=== PATIENT | male | born 1940 | race Caucasian/White ===

== ENCOUNTER 2019-04-22 14:03 | Outpatient (CLI) | payer MEDICARE, OTHER, SELFPAY ==
[2019-04-22 14:26] LABS: Basophils Percent Auto 0.5 % (0.2-1.2); Eosinophils Absolute Auto 0.1 K/mm3 (0-0.3); Eosinophils Percent Auto 1.7 % (0-4.4); Hematocrit 43.2 % (42.0-52.0); Hemoglobin 14.3 g/dL (14.0-18.0); Immature Granulocyte Absolute 0.02 K/mm3 (0.00-0.031); Immature Granulocyte Percent A 0.3 % (0-0.5); Lymphocytes Absolute Auto 1.65 K/mm3 (0.9-3.2); Lymphocytes Percent Auto 26.2 % (18.3-44.2); Mean Corpuscular HGB Conc 33.1 g/dl (32-36); Mean Corpuscular Hemoglobin 30.4 pg (26-34); Mean Corpuscular Volume 91.7 fl (80-100); Mean Platelet Volume 10.6 fl (7.4-10.4); Monocytes Absolute Auto 0.6 K/mm3 (0.1-0.6); Monocytes Percent Auto 8.9 % (2.6-8.5); Neutrophils Absolute Auto 3.9 K/mm3 (1.3-6.7); Neutrophils Percent Auto 62.4 % (45.5-73.1); Platelet Count Result 193 k/mm3 (150-375); Red Blood Count 4.71 M/mm3 (4.6-6.20); Red Cell Distribution Width 13.6 % (11.5-14.5); White Blood Count 6.3 K/mm3 (4.5-10.0)
[2019-04-22 14:39] LABS: Alanine Aminotransferase 30 U/L (4-50); Albumin Level 4.3 g/dL (3.5-5.1); Alkaline Phosphatase 55 U/L (38-126); Aspartate Amino Transferase 32 U/L (17-59); Bilirubin,Total 0.8 mg/dL (0.2-1.3); Blood Urea Nitrogen 17 mg/dL (9-20); Calcium 9.1 mg/dL (8.4-10.2); Carbon Dioxide 23 mmol/L (22-30); Chloride 105 mmol/L (98-107); Cholesterol 99 mg/dL (0-200); Estimated Glomerular Filt Rate > 60; Glucose 104 mg/dL (75-110); HDL Direct 30 mg/dL; Potassium 4.5 mmol/L (3.4-5.0); Sodium 140 mmol/L (137-145); Triglycerides 107 mg/dL (<150)
[2019-04-22 14:49] LABS: LDL Cholesterol Direct 52 mg/dL
== END 2019-04-22 14:04 | disposition home or self-care (01) ==
DX: I25.10 Atherosclerotic heart disease of native coronary artery without angina pectoris (principal); E78.5 Hyperlipidemia, unspecified; Z85.038 Personal history of other malignant neoplasm of large intestine
CPT/HCPCS: 36415; 80053; 80061; 85025

== ENCOUNTER 2020-02-17 10:09 | Outpatient (CLI) | payer MEDICARE, OTHER, SELFPAY ==
[2020-02-17 10:50] LABS: Basophils Percent Auto 0.3 % (0.2-1.2); Eosinophils Absolute Auto 0.1 K/mm3 (0-0.3); Eosinophils Percent Auto 2.2 % (0-4.4); Hematocrit 40.4 % (42.0-52.0); Hemoglobin 13.5 g/dL (14.0-18.0); Immature Granulocyte Absolute 0.02 K/mm3 (0.00-0.031); Immature Granulocyte Percent A 0.3 % (0-0.5); Lymphocytes Absolute Auto 1.36 K/mm3 (0.9-3.2); Lymphocytes Percent Auto 23.2 % (18.3-44.2); Mean Corpuscular HGB Conc 33.4 g/dl (32-36); Mean Corpuscular Hemoglobin 31.5 pg (26-34); Mean Corpuscular Volume 94.4 fl (80-100); Monocytes Absolute Auto 0.5 K/mm3 (0.1-0.6); Neutrophils Absolute Auto 3.8 K/mm3 (1.3-6.7); Platelet Count Result 194 k/mm3 (150-375); Red Blood Count 4.28 M/mm3 (4.6-6.20); Red Cell Distribution Width 13.2 % (11.5-14.5); White Blood Count 5.9 K/mm3 (4.5-10.0)
[2020-02-17 11:04] LABS: Alanine Aminotransferase 23 U/L (4-50); Albumin Level 3.9 g/dL (3.5-5.1); Alkaline Phosphatase 51 U/L (38-126); Anion Gap 5 mmol/L (8-16); Aspartate Amino Transferase 26 U/L (17-59); Bilirubin,Total 0.9 mg/dL (0.2-1.3); Blood Urea Nitrogen 18 mg/dL (9-20); Calcium 9.1 mg/dL (8.4-10.2); Carbon Dioxide 29 mmol/L (22-30); Chloride 106 mmol/L (98-107); Cholesterol 129 mg/dL (0-200); Estimated Glomerular Filt Rate > 60; Glucose 111 mg/dL (75-110); HDL Direct 31 mg/dL; Magnesium 1.9 mg/dL (1.6-2.3); Potassium 4.2 mmol/L (3.4-5.0); Sodium 140 mmol/L (137-145); Triglycerides 211 mg/dL (<150)
[2020-02-17 11:15] LABS: LDL Cholesterol Direct 55 mg/dL
== END 2020-02-17 10:10 | disposition home or self-care (01) ==
LOC: ANHLAB 10:14
PROVIDERS: Visit Provider Internal Medicine Interventional Cardiology
DX: E78.5 Hyperlipidemia, unspecified (principal); I25.718 Atherosclerosis of autologous vein coronary artery bypass graft(s) with other forms of angina pectoris
CPT/HCPCS: 36415; 80053; 80061; 83735; 85025

== ENCOUNTER 2020-08-23 08:59 | Outpatient (CLI) | payer MEDICARE, OTHER, SELFPAY ==
[2020-08-23 09:35] LABS: Basophils Percent Auto 0.3 % (0.2-1.2); Eosinophils Absolute Auto 0.1 K/mm3 (0-0.3); Eosinophils Percent Auto 1.4 % (0-4.4); Hematocrit 42.2 % (42.0-52.0); Hemoglobin 13.8 g/dL (14.0-18.0); Immature Granulocyte Absolute 0.02 K/mm3 (0.00-0.031); Immature Granulocyte Percent A 0.3 % (0-0.5); Lymphocytes Percent Auto 24.3 % (18.3-44.2); Mean Corpuscular HGB Conc 32.7 g/dl (32-36); Mean Corpuscular Hemoglobin 31.7 pg (26-34); Mean Platelet Volume 10.3 fl (7.4-10.4); Monocytes Absolute Auto 0.6 K/mm3 (0.1-0.6); Monocytes Percent Auto 10.4 % (2.6-8.5); Neutrophils Absolute Auto 3.6 K/mm3 (1.3-6.7); Neutrophils Percent Auto 63.3 % (45.5-73.1); Platelet Count Result 188 k/mm3 (150-375); Red Blood Count 4.35 M/mm3 (4.6-6.20); Red Cell Distribution Width 13.2 % (11.5-14.5); White Blood Count 5.8 K/mm3 (4.5-10.0)
[2020-08-23 09:48] LABS: Alanine Aminotransferase 19 U/L (4-50); Albumin Level 4.1 g/dL (3.5-5.1); Alkaline Phosphatase 50 U/L (38-126); Anion Gap 8 mmol/L (8-16); Aspartate Amino Transferase 28 U/L (17-59); Bilirubin,Total 1.3 mg/dL (0.2-1.3); Blood Urea Nitrogen 17 mg/dL (9-20); Calcium 9.3 mg/dL (8.4-10.2); Carbon Dioxide 27 mmol/L (22-30); Chloride 106 mmol/L (98-107); Cholesterol 120 mg/dL (0-200); Estimated Glomerular Filt Rate 53; Glucose 106 mg/dL (75-110); HDL Direct 29 mg/dL; Potassium 4.3 mmol/L (3.4-5.0); Sodium 141 mmol/L (137-145); Triglycerides 203 mg/dL (<150)
[2020-08-23 09:59] LABS: LDL Cholesterol Direct 49 mg/dL
== END 2020-08-23 09:00 | disposition home or self-care (01) ==
PROVIDERS: PCP Family Medicine; Visit Provider Internal Medicine Interventional Cardiology
DX: I25.718 Atherosclerosis of autologous vein coronary artery bypass graft(s) with other forms of angina pectoris (principal); R06.00 Dyspnea, unspecified
CPT/HCPCS: 36415; 80053; 80061; 85025

== ENCOUNTER 2021-03-02 09:43 | Outpatient (CLI) | payer MEDICARE, OTHER, SELFPAY ==
[2021-03-02 10:30] LABS: Basophils Percent Auto 0.4 % (0.2-1.2); Eosinophils Absolute Auto 0.1 K/mm3 (0-0.3); Eosinophils Percent Auto 2.3 % (0-4.4); Hematocrit 41.5 % (42.0-52.0); Hemoglobin 13.6 g/dL (14.0-18.0); Immature Granulocyte Absolute 0.02 K/mm3 (0.00-0.031); Immature Granulocyte Percent A 0.4 % (0-0.5); Lymphocytes Absolute Auto 1.51 K/mm3 (0.9-3.2); Lymphocytes Percent Auto 26.8 % (18.3-44.2); Mean Corpuscular HGB Conc 32.8 g/dl (32-36); Mean Corpuscular Hemoglobin 31.4 pg (26-34); Mean Corpuscular Volume 95.8 fl (80-100); Mean Platelet Volume 10.3 fl (7.4-10.4); Monocytes Absolute Auto 0.6 K/mm3 (0.1-0.6); Monocytes Percent Auto 10.3 % (2.6-8.5); Neutrophils Absolute Auto 3.4 K/mm3 (1.3-6.7); Neutrophils Percent Auto 59.8 % (45.5-73.1); Platelet Count Result 186 k/mm3 (150-375); Red Blood Count 4.33 M/mm3 (4.6-6.20); Red Cell Distribution Width 13.3 % (11.5-14.5); White Blood Count 5.6 K/mm3 (4.5-10.0)
[2021-03-02 10:41] LABS: Alanine Aminotransferase 24 U/L (4-50); Albumin Level 4.2 g/dL (3.5-5.1); Alkaline Phosphatase 53 U/L (38-126); Anion Gap 8 mmol/L (8-16); Aspartate Amino Transferase 26 U/L (17-59); Bilirubin,Total 0.7 mg/dL (0.2-1.3); Blood Urea Nitrogen 14 mg/dL (9-20); Calcium 9.4 mg/dL (8.4-10.2); Carbon Dioxide 25 mmol/L (22-30); Chloride 106 mmol/L (98-107); Cholesterol 116 mg/dL (0-200); Estimated Glomerular Filt Rate 59; Glucose 114 mg/dL (65-110); HDL Direct 35 mg/dL; Potassium 4.1 mmol/L (3.4-5.0); Sodium 139 mmol/L (137-145); Triglycerides 166 mg/dL (<150)
[2021-03-02 10:52] LABS: LDL Cholesterol Direct 51 mg/dL
== END 2021-03-02 09:44 | disposition home or self-care (01) ==
LOC: ANHLAB 09:45
PROVIDERS: PCP Family Medicine; Visit Provider Internal Medicine Interventional Cardiology
DX: I25.718 Atherosclerosis of autologous vein coronary artery bypass graft(s) with other forms of angina pectoris (principal); R06.00 Dyspnea, unspecified
CPT/HCPCS: 36415; 80053; 80061; 85025

== ENCOUNTER 2021-09-06 08:26 | Outpatient (CLI) | payer MEDICARE, OTHER, SELFPAY ==
[2021-09-06 08:41] LABS: Basophils Percent Auto 0.4 % (0.2-1.2); Eosinophils Absolute Auto 0.1 K/mm3 (0-0.3); Eosinophils Percent Auto 1.6 % (0-4.4); Hematocrit 42.6 % (42.0-52.0); Hemoglobin 13.7 g/dL (14.0-18.0); Immature Granulocyte Absolute 0.03 K/mm3 (0.00-0.031); Immature Granulocyte Percent A 0.4 % (0-0.5); Lymphocytes Absolute Auto 1.65 K/mm3 (0.9-3.2); Lymphocytes Percent Auto 24.3 % (18.3-44.2); Mean Corpuscular HGB Conc 32.2 g/dl (32-36); Mean Corpuscular Hemoglobin 31.4 pg (26-34); Mean Corpuscular Volume 97.5 fl (80-100); Mean Platelet Volume 9.6 fl (7.4-10.4); Monocytes Absolute Auto 0.8 K/mm3 (0.1-0.6); Monocytes Percent Auto 11.3 % (2.6-8.5); Neutrophils Absolute Auto 4.2 K/mm3 (1.3-6.7); Platelet Count Result 190 k/mm3 (150-375); Red Blood Count 4.37 M/mm3 (4.6-6.20); Red Cell Distribution Width 13.4 % (11.5-14.5); White Blood Count 6.8 K/mm3 (4.5-10.0)
[2021-09-06 09:03] LABS: Alanine Aminotransferase 21 U/L (6-50); Albumin Level 4.4 g/dL (3.5-5.1); Alkaline Phosphatase 52 U/L (38-126); Anion Gap 2 mmol/L (8-16); Aspartate Amino Transferase 26 U/L (17-59); Bilirubin,Total 1.1 mg/dL (0.2-1.3); Blood Urea Nitrogen 19 mg/dL (9-20); Calcium 8.9 mg/dL (8.4-10.2); Carbon Dioxide 29 mmol/L (22-30); Chloride 107 mmol/L (98-107); Cholesterol 111 mg/dL (0-200); Estimated Glomerular Filt Rate 49; Glucose 110 mg/dL (65-110); HDL Direct 35 mg/dL; Potassium 4.3 mmol/L (3.4-5.0); Sodium 138 mmol/L (137-145); Triglycerides 151 mg/dL (<150)
[2021-09-06 09:14] LABS: LDL Cholesterol Direct 45 mg/dL
== END 2021-09-06 08:27 | disposition home or self-care (01) ==
PROVIDERS: PCP Family Medicine; Visit Provider Internal Medicine Interventional Cardiology
DX: E78.5 Hyperlipidemia, unspecified (principal); I25.718 Atherosclerosis of autologous vein coronary artery bypass graft(s) with other forms of angina pectoris
CPT/HCPCS: 36415; 80053; 80061; 85025

== ENCOUNTER 2022-06-13 12:44 | Outpatient (CLI) | payer MEDICARE, OTHER, SELFPAY ==
[2022-06-13 13:07] LABS: Basophils Percent Auto 0.3 % (0.2-1.2); Eosinophils Absolute Auto 0.1 K/mm3 (0-0.3); Eosinophils Percent Auto 1.2 % (0-4.4); Hematocrit 41.7 % (42.0-52.0); Hemoglobin 13.3 g/dL (14.0-18.0); Immature Granulocyte Absolute 0.03 K/mm3 (0.00-0.031); Immature Granulocyte Percent A 0.5 % (0-0.5); Lymphocytes Absolute Auto 1.63 K/mm3 (0.9-3.2); Lymphocytes Percent Auto 27.9 % (18.3-44.2); Mean Corpuscular HGB Conc 31.9 g/dl (32-36); Mean Corpuscular Hemoglobin 32.2 pg (26-34); Monocytes Absolute Auto 0.6 K/mm3 (0.1-0.6); Monocytes Percent Auto 9.7 % (2.6-8.5); Neutrophils Absolute Auto 3.5 K/mm3 (1.3-6.7); Neutrophils Percent Auto 60.4 % (45.5-73.1); Platelet Count Result 196 k/mm3 (150-375); Red Blood Count 4.13 M/mm3 (4.6-6.20); Red Cell Distribution Width 13.5 % (11.5-14.5); White Blood Count 5.9 K/mm3 (4.5-10.0)
[2022-06-13 13:19] LABS: Alanine Aminotransferase 23 U/L (6-50); Albumin Level 4.3 g/dL (3.5-5.1); Alkaline Phosphatase 47 U/L (38-126); Anion Gap 5 mmol/L (8-16); Aspartate Amino Transferase 25 U/L (17-59); Bilirubin,Total 0.8 mg/dL (0.2-1.3); Blood Urea Nitrogen 25 mg/dL (9-20); Carbon Dioxide 28 mmol/L (22-30); Chloride 106 mmol/L (98-107); Cholesterol 125 mg/dL (0-200); Estimated Glomerular Filt Rate > 60; Glucose 107 mg/dL (65-110); HDL Direct 39 mg/dL; Potassium 4.3 mmol/L (3.4-5.0); Sodium 139 mmol/L (137-145); Triglycerides 160 mg/dL (<150)
[2022-06-13 13:30] LABS: LDL Cholesterol Direct 54 mg/dL
== END 2022-06-13 12:45 | disposition home or self-care (01) ==
PROVIDERS: PCP Family Medicine; Visit Provider Internal Medicine Interventional Cardiology
DX: E78.2 Mixed hyperlipidemia (principal); I10 Essential (primary) hypertension; Z79.01 Long term (current) use of anticoagulants
CPT/HCPCS: 36415; 80053; 80061; 85025

== ENCOUNTER 2022-09-22 15:04 | Inpatient (IN) | payer MEDICARE, OTHER, SELFPAY ==
[2022-09-22] VITALS (15 sets, daily range): BP systolic 122–162; BP diastolic 66–83; PULSE 59–85; RESP 12–21; TEMP 36.3–37.6; O2SAT 94–98; BMI 33.1
--- NOTE | ~2022-09-22 | CT_ITS ---
CORRECTED REPORT exam description [place] [facility] [place] This report was recreated on 09/26/22. Original report was C EXAMINATION: CT abdomen pelvis w con DATE: 09/22/2022 16:56 INDICATION: RLQ PAIN TECHNIQUE: Computed tomography (CT) of the abdomen and pelvis was performed without intravenous contrast. Automated exposure control and iterative reconstruction technique were employed. The dose-length product was 1537.77 mGy- cm. COMPARISON: 11/29/2014. FINDINGS: Lower thorax: Unremarkable Liver: Granulomatous calcifications. Biliary/Gallbladder: Gallbladder is absent. No bile duct dilation. Pancreas: Mild atrophy. Spleen: Granulomatous calcifications. Adrenals:No mass. Kidneys: Simple bilateral lower pole cysts. No mass, stone, or hydronephrosis. GI tract: Uncomplicated rectosigmoid anastomosis. No small or large bowel dilation. Mild chronic dilation of the appendix to 9 mm, mild mucosal hyperemia, no surrounding inflammatory change Diverticulosis without diverticulitis. Mesentery/Peritoneum: No ascites, mass, or free air. Retroperitoneum: No mass. Atherosclerotic abdominal aortic and/or arterial calcifications. Pelvis: Prostatomegaly. Moderate bladder wall thickening with mild inflammatory change in a partially distended urinary bladder. Soft Tissues: Small fat-containing uncomplicated umbilical and bilateral inguinal hernias. Bones: No acute osseous finding. 6 nonrib-bearing lumbar-type vertebral bodies. Chronic moderate compression deformity at L1. Chronic mild endplate deformity at L4. Multilevel degenerative disc disease and facet arthropathy. DISH changes. IMPRESSION: Stable dilation of the appendix, with mild wall hyperemia and no significant surrounding inflammatory change, chronic change is favored, early appendicitis is not excluded. Cystitis versus chronic bladder wall thickening from outlet compromise. Reviewed, dictated and finalized at location [facility]. [facility] IMPRESSION: Stable dilation of the appendix, with mild wall hyperemia and no significant urbano rrounding inflammatory change, chronic change is favored, early appendicitis is not excluded. Cystitis versus chronic bladder wall thickening from outlet compromise.
--- NOTE | ~2022-09-22 | CT_ITS ---
EXAMINATION: CTA chest DATE: 09/22/2022 16:56 INDICATION: chest pain, eval dissection TECHNIQUE: Computed tomography (CT) of the chest was performed with 100 mL Omnipaque-350 intravenous contrast in the arterial phase. Automated exposure control and iterative reconstruction technique wer e employed. The dose-length product was 989.58 mGy-cm. COMPARISON: CT abdomen pelvis 11/29/2014. FINDINGS: CHEST: Thoracic aorta: No significant dilation. Mild arch calcification. Lung parenchyma and airways: Mild senescent change. Dependent atelectasis/scar. Calcified granulomas. Scattered sub-6 mm pulmonary nodules. Thoracic inlet, axillae and chest wall: No thyroid or soft tissue mass. No axillary lymphadenopathy. Intact sternotomy wires, likely from prior CABG. Mediastinum: No mass or lymphadenopathy. The pulmonary arteries are well seen and no embolus is detec [place]. Heart and pericardium: Normal heart size. No pericardial effusion. Aortic valve calcification. Coronary artery calcifications: Moderate. Pleura: No effusion or mass. Upper abdomen: No significant finding. Thoracic bones: No acute osseous finding in the chest. Degenerative changes in the shoulders and spin e. DISH changes. Chronic moderate T12 compression fracture. IMPRESSION: No acute thoracic process detected. Scattered sub-6 mm pulmonary nodules, likely benign and requiring no additional follow-up unless the patient is at high risk, in which case consider an optional low-dose noncontrast CT of the chest in o ne year. Reviewed, dictated and finalized at [facility]. IMPRESSION: No acute thoracic process detected. Scattered sub-6 mm pulmonary nodules, likely benign and requiring no additional follow-up unless the patient is at high risk, in which case consider an option al low-dose noncontrast CT of the chest in one year.
--- NOTE | 2022-09-22 15:20 | ECG_ITS ---
Measurements Intervals [place] Rate: 79 P: 34 MN: 157 QRS: -1 QRSD: 110 T: 43 QT: 373 QTc: 428 Interpretive Statements SINUS RHYTHM NORMAL ECG NO PREVIOUS ECG AVAILABLE FOR COMPARISON Electronically Signed On 09-22-2022 16:44:11 CDT by Burt Mi D.O.
--- NOTE | 2022-09-22 15:23 | ED.FEVER ---
HPI - Fever General Chief Complaint: Fever Stated Complaint: fever/body aches/ Time Seen by Provider: 09/22/22 15:09 History of Present Illness HPI Narrative: Patient is an 82-year-old male with a history of CAD status post CABG, hyperlipidemia, hypertension presenting with fevers and chest pain. Patient states that for the last several days he has been feeling increasingly nauseated and has had intermittent episodes of chest pain that goes into his back. States that currently he is pain-free. States that he took some nitro yesterday which did not really do much. States that he ate at a [employer] yesterday and several hours later started to feel very nauseated. States that this is continued. States he had another episode of chest pain this morning that did not respond to nitro. States he has been feeling increasingly short of breath. Patient was feeling chilly so he checked his temperature and it was 103 Fahrenheit. He also states that he has had some right lower abdominal pain. No headache, vision changes, speech changes, cough, dysuria, leg swelling. Reports chronic diarrhea. Related Data Home Medications Medication Instructions Recorded Confirmed aspirin 81 mg tablet 81 mg PO DAILY 09/22/22 09/22/22 atenolol 50 mg tablet 50 mg PO DAILY 09/22/22 09/22/22 atorvastatin 80 mg tablet 80 mg HS 09/22/22 09/22/22 cholecalciferol (vitamin D3) 125 125 mcg PO DAILY 09/22/22 09/22/22 mcg (5,000 unit) tablet (Vitamin D3) chondroitin sulfate A sodium 400 1,200 mg PO DAILY 09/22/22 09/22/22 mg capsule clopidogrel 75 mg tablet 75 mg DAILY 09/22/22 09/22/22 glucosamine sulfate 750 mg tablet 1,500 mg PO DAILY 09/22/22 09/22/22 isosorbide mononitrate 60 mg 60 mg PO DAILY 09/22/22 09/22/22 tablet,extended release 24 hr lisinopril 10 mg tablet 10 mg PO DAILY 09/22/22 09/22/22 multivitamin (Daily Multi-Vitamin 1 tablet PO DAILY 09/22/22 09/22/22 tablet) omega 1-zub-aic-fish oil 1,000 mg 1 cap PO DAILY 09/22/22 09/22/22 (120 mg-180 mg) capsule (Fish Oil) prednisolone acetate 1 % eye 1 drp EACH EYE HS 09/22/22 09/22/22 drops,suspension ranolazine 1,000 mg 1,000 mg PO QAM AND QPM 09/22/22 09/22/22 tablet,extended release,12 hr Allergies Allergy/AdvReac Type Severity Reaction Status Date / Time No Known Allergies Allergy Unverified 11/06/16 18:32 Review of Systems Review of Systems: All systems reviewed & are unremarkable except as noted in HPI and below [facility] Past Medical History Medical History CAD (coronary artery disease) Catheterization in 2017 revealed severe three-vessel coronary disease, patent SONG to the Left anterior descending, patent sequential radial artery graft to OM2 and OM3, occluded SVG to the ramus, occluded SVG to the RCA. The RCA had an 80% proximal and a long 70% mid stenosis with an occluded posterolateral and 80% ostial PDA branch which was small. The diagonal was also diseased. Due to the diffuse nature of his CAD and small vessels, medical therapy was continued. Compression fracture Hyperlipidemia Hypertension Obstructive sleep apnea Osteoarthritis Surgical History Surgical History H/O colectomy History of colon cancer 6 cm tumor. Hx of cholecystectomy S/P CABG x 5 CABG x5 in 2001 (SONG to the Left anterior descending, SVG to the ramus, SVG to the posterior descending, radial artery graft to the om 1 sequentially to OM2. Catheterization 2017 showed the vein grafts were occluded. Family History Family History Sibling Family history of chronic obstructive pulmonary disease Family history of diabetes mellitus in first degree relative Mother Family history of heart disease in male family member before age 55 Father Acute myocardial infarction Other Family history of gallbladder disease Social History Socia
[2022-09-22] MEDS: SODIUM CHLORIDE 0.9% IV 1,000 ML 999 ML IV CONT (15:35)
[2022-09-22 16:02] LABS: Basophils Percent Auto 0.2 % (0.2-1.2); Hematocrit 39.1 % (42.0-52.0); Hemoglobin 12.9 g/dL (14.0-18.0); Immature Granulocyte Absolute 0.03 K/mm3 (0.00-0.031); Immature Granulocyte Percent A 0.5 % (0-0.5); Lymphocytes Absolute Auto 0.32 K/mm3 (0.9-3.2); Lymphocytes Percent Auto 5.3 % (18.3-44.2); Mean Corpuscular Hemoglobin 31.8 pg (26-34); Mean Corpuscular Volume 96.3 fl (80-100); Mean Platelet Volume 10.8 fl (7.4-10.4); Monocytes Absolute Auto 0.5 K/mm3 (0.1-0.6); Monocytes Percent Auto 8.1 % (2.6-8.5); Neutrophils Absolute Auto 5.2 K/mm3 (1.3-6.7); Neutrophils Percent Auto 85.9 % (45.5-73.1); Platelet Count Result 147 k/mm3 (150-375); Red Blood Count 4.06 M/mm3 (4.6-6.20); Red Cell Distribution Width 13.6 % (11.5-14.5); White Blood Count 6.1 K/mm3 (4.5-10.0)
[2022-09-22 16:12] LABS: Lactic Acid Reflex 1.8 mmol/L (0.7-2.0); Lipase 38 U/L (23-300); Magnesium 1.8 mg/dL (1.6-2.3)
[2022-09-22 16:14] LABS: INR 1.1; Prothrombin Time 14.7 Seconds (11.1-14.7)
[2022-09-22 16:15] LABS: Partial Thromboplastin Time 36.7 SECONDS (22.3-36.8)
[2022-09-22 16:16] LABS: Alanine Aminotransferase 26 U/L (6-50); Albumin Level 4.1 g/dL (3.5-5.1); Alkaline Phosphatase 52 U/L (38-126); Anion Gap 11 mmol/L (8-16); Aspartate Amino Transferase 32 U/L (17-59); Bilirubin,Total 1.4 mg/dL (0.2-1.3); Blood Urea Nitrogen 21 mg/dL (9-20); CRP 6.6 mg/dL (<1.0); Carbon Dioxide 22 mmol/L (22-30); Chloride 102 mmol/L (98-107); Estimated Glomerular Filt Rate > 60; Glucose 120 mg/dL (65-110); Potassium 4.3 mmol/L (3.4-5.0); Sodium 135 mmol/L (137-145)
[2022-09-22 16:22] LABS: NT Pro B Type Natriuretic Pept 962 pg/mL (19.9-100)
[2022-09-22 16:27] LABS: Troponin I 0.233 ng/mL (0.000-0.034)
[2022-09-22 16:31] LABS: Appearance Urine Clear (Clear); Bacteria Urine None Seen /hpf; Bilirubin Urine Negative (Negative); Blood Urine Trace (Negative); Color Urine Yellow (Yellow); Glucose Urine UA Negative (Negative); Hyaline Casts Urine Present /lpf; Ketones Urine Negative (Negative); Leukocyte Esterase Ur 2+ LEU/UL (Negative); Nitrate Urine Positive (Negative); Non Pathogenic Casts 0-2; Protein Urine Trace mg/dL (Negative); RBC Urine 0-2 /hpf (0-2); Specific Grav Ur 1.021 (1.001-1.035); Squamous Epithelial Cell Urine None seen /hpf (Few); WBC Urine 51-100 /hpf; pH Urine 5.5 (5.0-9.0)
[2022-09-22 16:32] LABS: Add Urine Microscopic? YES
[2022-09-22] MEDS: ASPIRIN 81 MG CHEWABLE TABLET 324 MG PO (16:34)
[2022-09-22 16:43] LABS: Influenza A QL RT-PCR Negative (Negative); Influenza B QL RT-PCR Negative (Negative); RSV RNA, RT-PCR Negative (Negative); SARS-CoV-2 RNA PCR Negative (Negative)
--- NOTE | 2022-09-22 18:51 | ADMGEN ---
This patient, Kannan Curran, was admitted to IMU Room 202-01. Patient/family oriented to hospital policies and general routines including ID bracelet, bed and alarms, visiting hours, pain management, procedures, bathroom and other care routines, personal items, smoking policy, room service/diet, and visiting hours. Information on how to activate the Rapid Response Team has been discussed. Patient/Family are encouraged to report perceived risks to care and to ask questions if they do not understand what they are told or what they should do.
--- NOTE | 2022-09-22 20:12 | PM.IMHP ---
H&P: HPI History of Present Illness Date/Time: 09/22/22 20:12 Chief Complaint: Fever with body aches Narrative: This is an 82-year-old male patient who has had history of coronary artery disease with a 5 vessel CABG. The patient's dominatrix is at [facility] Dr. Fonseca. The patient was complaining of chest pain and fevers today. The patient stated that he ate [place] food approximately 2 days ago and has been feeling nauseated and had some intermittent episodes of chest pain that comes and goes. He is currently pain-free. The patient has had some nausea and some chills. Patient stated that his T-max was 103?. He also is complaining of some right lower quadrant pain. No vomiting and the patient has chronic diarrhea. His white count is normal. H&H is 12.9 and 39.1. Platelets 143. Troponin 0.233, 0.180, and 0.136. C reactive protein is 6.6. BNP is 962. Urine is positive for UTI. Influenza A/B COVID and RSV are all negative. Abdominal pelvis CT was read as a following dilation of the appendix, with mild wall hyperemia and no significant surrounding inflammatory change, chronic change is favored, early appendicitis is not excluded. Cystitis versus chronic bladder wall thickening from outlet compromise. Chest CTA was read as no acute thoracic process detected. Scattered sub-6 mm pulmonary nodules, likely benign and requiring no additional follow-up unless the patient is at high risk, in which case consider an optional low-dose noncontrast CT of the chest in one year. Patient was given aspirin Rocephin and IV fluids in the emergency room. Review of Systems Review of Systems: All systems reviewed & are unremarkable except as noted in HPI and below Constitutional: Constitutional: Reports as per HPI and Reports no additional constitutional complaints Eyes: Eyes: Reports as per HPI and Reports no additional eye complaints ENT: Reports system reviewed and no additional complaints, except as documented and Reports Normal hearing present Cardiovascular: Cardiovascular: Reports no additional cardiovascular complaints Respiratory: Respiratory: Reports no additional respiratory complaints and Reports no additional respiratory complaints Gastrointestinal: Gastrointestinal: Reports as per HPI and Reports no additional gastrointestinal complaints Musculoskeletal: Musculoskeletal: Reports no additional musculoskeletal complaints Integumentary/Breasts: Skin/Breast: Reports system reviewed and no additional complaints, except as docu and Reports as per HPI Neurologic: Reports system reviewed and no additional complaints, except as documented, Reports as per HPI and Reports Normal hearing present Psychiatric: Psychiatric: Reports no additional psychiatric complaints and Reports as per HPI Endocrine: Endocrine: Reports no additional endocrine complaints Hematologic/Lymphatic: Hematologic/Lymphatic: Reports no additional hematologic/lymphatic complaints Allergic/Immunologic: Allergic/Immunologic: Reports no additional allergic/immunologic complaints PMFSH Past Medical History Medical History (Updated 09/23/22 @ 00:16 by Coretta Baird NP) CAD (coronary artery disease) Compression fracture Hyperlipidemia Hypertension Obstructive sleep apnea Osteoarthritis Surgical History Surgical History (Updated 09/23/22 @ 00:12 by Coretta Baird NP) H/O colectomy History of colon cancer 6 cm tumor. Hx of cholecystectomy S/P CABG x 5 Family History Family History Sibling Family history of chronic obstructive pulmonary disease Family history of diabetes mellitus in first degree relative Mother Family history of heart disease in male family member before age 55 Father Acute myocardial infarction Other Family history of gallbladder disease Social History Social History (Updated 09/23/22 @ 00:13 by Coretta Baird NP) Social History: The patient
[2022-09-22 22:28] LABS: Troponin I 0.136 ng/mL (0.000-0.034)
[2022-09-23] VITALS (17 sets, daily range): BP systolic 109–136; BP diastolic 51–68; PULSE 54–68; RESP 16–28; TEMP 36.4–36.9; O2SAT 94–99
[2022-09-23 05:08] LABS: Basophils Percent Auto 0.3 % (0.2-1.2); Eosinophils Percent Auto 0.3 % (0-4.4); Hematocrit 36.3 % (42.0-52.0); Hemoglobin 11.9 g/dL (14.0-18.0); Immature Granulocyte Absolute 0.01 K/mm3 (0.00-0.031); Immature Granulocyte Percent A 0.3 % (0-0.5); Lymphocytes Absolute Auto 0.62 K/mm3 (0.9-3.2); Lymphocytes Percent Auto 15.7 % (18.3-44.2); Mean Corpuscular HGB Conc 32.8 g/dl (32-36); Mean Corpuscular Hemoglobin 31.8 pg (26-34); Mean Corpuscular Volume 97.1 fl (80-100); Mean Platelet Volume 10.5 fl (7.4-10.4); Monocytes Absolute Auto 0.5 K/mm3 (0.1-0.6); Monocytes Percent Auto 12.4 % (2.6-8.5); Neutrophils Absolute Auto 2.8 K/mm3 (1.3-6.7); Platelet Count Result 128 k/mm3 (150-375); Red Blood Count 3.74 M/mm3 (4.6-6.20); Red Cell Distribution Width 13.5 % (11.5-14.5)
[2022-09-23 05:22] LABS: Lactic Acid Reflex 0.9 mmol/L (0.7-2.0)
[2022-09-23 05:25] LABS: Alanine Aminotransferase 25 U/L (6-50); Albumin Level 3.5 g/dL (3.5-5.1); Alkaline Phosphatase 45 U/L (38-126); Anion Gap 7 mmol/L (8-16); Aspartate Amino Transferase 33 U/L (17-59); Blood Urea Nitrogen 22 mg/dL (9-20); Calcium 8.2 mg/dL (8.4-10.2); Carbon Dioxide 23 mmol/L (22-30); Chloride 105 mmol/L (98-107); Estimated CRCL calculation 71 ml/min; Estimated Glomerular Filt Rate > 60; Glucose 104 mg/dL (65-110); Magnesium 1.9 mg/dL (1.6-2.3); Potassium 3.8 mmol/L (3.4-5.0); Sodium 135 mmol/L (137-145)
[2022-09-23 06:26] LABS: Thyroid Stimulating Hormone Reflex 0.423 uIU/mL (0.465-4.68)
--- NOTE | 2022-09-23 09:17 | PM.CNCAR ---
Assessment and Plan Assessment and plan (1) Elevated troponin: Code(s): R77.8 - Other specified abnormalities of plasma proteins Status: Acute Assessment and Plan: Patient presents with elevated troponins, and some chest discomfort which was somewhat atypical bt likely anginal. EKG does not show any ischemic changes. I suspected troponins are related to non ischemic myocardial damage due to the patient's high fever and rigors, and associated UTI, rather than an ACS syndrome. --continue secondary prevention with aspirin, atenolol, atorvastatin, clopidogrel etc. --TNG prn CP --continue conservative management of chest pain. (2) Chest discomfort: Code(s): R07.89 - Other chest pain Status: Acute Assessment and Plan: Some chest discomfort radiating to the axilla, not nitrate responsive, but known significant CAD and elevated troponins so this was likely angina. Has resolved. --continue conservative management (3) UTI (urinary tract infection): Code(s): N39.0 - Urinary tract infection, site not specified Status: Acute Assessment and Plan: High fever at home, probably UTI, possibly some degree of gastroenteritis as well. Being evaluated by Dr. Addison hutchison for his abnormal CT scan but it sounds like acute appendicitis is unlikely. --treatment of UTI per hospitalist. (4) CAD (coronary artery disease): Code(s): I25.10 - Atherosclerotic heart disease of [place] coronary artery without angina pectoris Status: Acute Assessment and Plan: Known CAD, remote CABG, known occlusion of vein grafts and diffuse CAD, clinically stable recently. --continue secondary prevention. Plan Thank you for allowing us to participate in the care of this nice gentleman. Will follow along and assist in any way we can. History of Present Illness History of Present Illness Consult date/time: 09/23/22 09:17 Reason For Visit: elevated troponin Narrative: Kanann Curran is an 82-year-old male whom I was asked to see at the request of AGUSTO Baird for my advice and opinion regarding his history of CAD and elevated troponin, in consultation. Mr. Villalobos has a history of CAD and CABG, followed by Dr. Eulalio Perez at [facility]. He has a history of CABG x5 in 2001 (SONG to the Left anterior descending, SVG to the ramus, SVG to the posterior descending, radial artery graft to the om 1 sequentially to OM2. Catheterization in 2017 revealed severe three-vessel coronary disease, patent SONG to the Left anterior descending, patent sequential radial artery graft to OM2 and OM3, occluded SVG to the ramus, occluded SVG to the RCA. The RCA had an 80% proximal and a long 70% mid stenosis with an occluded posterolateral and 80% ostial PDA branch which was small. The diagonal was also diseased. Due to the diffuse nature of his CAD and small vessels, medical therapy was continued. he was last seen in June 2022, with no angina while taking Ranexa and Imdur. The patient has not felt well since he ate [place] food on and Saturday with abdominal discomfort, ?grumbling, and anorexia. He also had a little mild chest discomfort across the upper chest radiating to his left axilla which lasted 1-2 hours, intermittently, on Saturday, and which did not respond to nitroglycerin x4. Per EMR he was having some shortness of breath although he denied any breathing problems with me. Per EMR he had some right lower quadrant pain, although on my questioning he had diffuse abdominal discomfort. He had a fever of 103.5? at home with sweats and chills, rigors, blistering knee hot, then feeling hypothermic. He came to the emergency room yesterday evening. Troponins were 0.23, 0.18, and 0.14. ProBNP is 960. CT of the abdomen and pelvis showed dilation of the appendix with mild wall hyperemia but no significant surrounding inflammatory change, possibly chronic although early appendicitis cannot be
[2022-09-23] MEDS: metroNIDAZOLE 500 MG/ISO 100ML 500 MG/100 ML BAG 100 MG IVPB ×3 (09:23→22:16)
[2022-09-23] MEDS: ASPIRIN 81 MG ENTERIC TABLET PO (09:27)
[2022-09-23] MEDS: atenoloL 50 MG TABLET PO (09:27)
[2022-09-23] MEDS: CHOLECALCIFEROL 1,000 UNITS TABLET 5000 UNITS PO (09:28)
[2022-09-23] MEDS: CLOPIDOGREL BISULFATE 75 MG TABLET BY MOUTH (09:28)
[2022-09-23] MEDS: ENOXAPARIN 40 MG/0.4 ML SYRINGE SUB-Q (09:29)
[2022-09-23] MEDS: RANOLAZINE 500 MG TAB.ER.12H 1000 MG PO ×2 (09:29→20:34)
[2022-09-23] MEDS: ISOSORBIDE MONONITRATE 60 MG TAB.ER.24H PO (09:29)
[2022-09-23] MEDS: MULTIVITAMINS THERAPEUTIC TAB (*BKC) 1 TABLET PO (09:29)
[2022-09-23] MEDS: lisinopriL 10 MG TABLET PO (09:29)
[2022-09-23] MEDS: OMEGA 3 POLYUNSAT FATTY ACIDS 1 GM CAP PO (09:29)
--- NOTE | 2022-09-23 10:28 | PM.CNGS ---
Assessment and Plan Assessment and plan (1) CAD (coronary artery disease): Code(s): I25.10 - Atherosclerotic heart disease of [place] coronary artery without angina pectoris Status: Acute Assessment and Plan: cardiology consulted and following (2) UTI (urinary tract infection): Code(s): N39.0 - Urinary tract infection, site not specified Status: Acute Assessment and Plan: cont abx, supportive care (3) Chronic appendicitis: Code(s): K36 - Other appendicitis Status: Acute Assessment and Plan: very mild on CT, exam benign, will follow c serial exams, ok to have diet from surgical standpoint History of Present Illness Consult details Consult date: 09/23/22 Reason for consult: abdominal pain Requesting physician: Radha Amato MD Narrative: The patient is an 82-year-old male with multiple medical issues including CAD presenting with chest pain, mild lower abdominal pain. Patient was noted to have elevated troponins and has been admitted for further workup. The patient reports some mild suprapubic abdominal pain, and right lower quadrant pain with palpation. The patient reports that he has had this right lower quadrant abdominal pain with palpation for many years. The patient reports no pain other then when this area is palpated. Workup, including imaging, is significant for what looks to be very mild chronic appendicitis. Review of Systems Constitutional: Constitutional: Reports as per HPI, Denies anorexia, Denies chills, Reports fatigue, Reports fever(s), Denies increased appetite, Reports lethargy, Reports malaise, Denies poor appetite, Reports weakness, Denies weight gain and Denies weight loss Eyes: Eyes: Reports no additional eye complaints ENT: Reports system reviewed and no additional complaints, except as documented Cardiovascular: Cardiovascular: Reports as per HPI, Reports chest pain, Reports chest pain with activity, Reports lightheadedness and Reports dyspnea on exertion Respiratory: Respiratory: Reports as per HPI Gastrointestinal: Gastrointestinal: Reports as per HPI and Reports abdominal pain Genitourinary: Genitourinary: Reports no additional male genitourinary complaints Musculoskeletal: Musculoskeletal: Reports no additional musculoskeletal complaints Integumentary/Breasts: Skin/Breast: Reports system reviewed and no additional complaints, except as docu Neurologic: Reports system reviewed and no additional complaints, except as documented Psychiatric: Psychiatric: Reports no additional psychiatric complaints Endocrine: Endocrine: Reports no additional endocrine complaints Hematologic/Lymphatic: Hematologic/Lymphatic: Reports no additional hematologic/lymphatic complaints Allergic/Immunologic: Allergic/Immunologic: Reports no additional allergic/immunologic complaints PMFSH Past Medical History Medical History CAD (coronary artery disease) Catheterization in 2017 revealed severe three-vessel coronary disease, patent SONG to the Left anterior descending, patent sequential radial artery graft to OM2 and OM3, occluded SVG to the ramus, occluded SVG to the RCA. The RCA had an 80% proximal and a long 70% mid stenosis with an occluded posterolateral and 80% ostial PDA branch which was small. The diagonal was also diseased. Due to the diffuse nature of his CAD and small vessels, medical therapy was continued. Compression fracture Hyperlipidemia Hypertension Obstructive sleep apnea Osteoarthritis Surgical History Surgical History H/O colectomy History of colon cancer 6 cm tumor. Hx of cholecystectomy S/P CABG x 5 CABG x5 in 2001 (SONG to the Left anterior descending, SVG to the ramus, SVG to the posterior descending, radial artery graft to the om 1 sequentially to OM2. Catheterization 2016 showed the vein grafts were occluded. Family Hi
[2022-09-23] MEDS: cefTRIAXone 2 GM/NS 100 ML 2 GM/100 ML BAG IVPB (13:11)
[2022-09-23 14:17] LABS: Free T4 Free Thyroxine Reflex 0.95 ng/dL (0.78-2.19)
--- NOTE | 2022-09-23 14:53 | PM.IMPN ---
Progress Note: A&P Assessment and Plan (1) Chest discomfort: Code(s): R07.89 - Other chest pain Status: Acute Assessment and Plan: Patient presents with chest pain and fevers. Troponin elevated at 0.233 but trending down now. EKG showing NSR and normal appearing EKG. He has a hx of CAD s/p CABG x5 in 2001 and is followed by Dr[address] Perez at [facility]Cardiology notes show he had a catheterization in 2017 showing severe three-vessel coronary disease, patent SONG to the LAD, radial artery graft to OM2 and OM3, occluded SVG to the ramus, occluded SVG to the RCA.? The RCA had an 80% proximal and a long 70% mid stenosis with an occluded posterolateral and 80% ostial PDA branch which was small.? The diagonal was also diseased.? Due to the diffuse nature of his CAD and small vessels, medical therapy was continued. Cardiology has been consulted. The patient has no further complaints of chest pain. Continue with Plavix, aspirin, atenolol, Imdur, atorvastatin and Ranexa. Appreciate cardiology input. (2) Elevated troponin: Code(s): R77.8 - Other specified abnormalities of plasma proteins Status: Acute Assessment and Plan: As above (3) Chronic appendicitis: Code(s): K36 - Other appendicitis Status: Acute Assessment and Plan: Patient with fever present on admission. He has known abnormalities of his appendix from 2013. No eelvated WBC (actually low this morning). No documented fevers here. UA noted but could either be UTI and/or related to jonnathan-appendiceal inflammation. BCx and UCx pending. He was started on Rocephin. Will add Flagyl. GenSurg consulted and appreciated their input. (4) UTI (urinary tract infection): Code(s): N39.0 - Urinary tract infection, site not specified Status: Acute Assessment and Plan: As above. UA noted. Continue with Rocephin and follow up on urine and blood cultures. (5) Fever: Code(s): R50.9 - Fever, unspecified Status: Acute Assessment and Plan: Patient had fever to 103 at home. Could be related to UTI and/or acute/chronic apendicitis. Cultures obtained. COVID/RSV/influenza negative. Chest CT negaitve for PNA. Normal WBC and no fevers here. Continue the same (6) CAD (coronary artery disease): Code(s): I25.10 - Atherosclerotic heart disease of [place] coronary artery without angina pectoris Status: Acute Assessment and Plan: He has a history of 5 vessel CABG. Continue current medical regiment (7) Hyperlipidemia: Code(s): E78.5 - Hyperlipidemia, unspecified Status: Acute Assessment and Plan: LFTs normal. Continue with atorvastatin. (8) Hypertension: Code(s): I10 - Essential (primary) hypertension Status: Acute Assessment and Plan: Patient's blood pressure was reviewed on 09/23/22 Blood pressure remains well controlled. Will continue current medications. (9) Obstructive sleep apnea: Code(s): G47.33 - Obstructive sleep apnea (adult) (pediatric) Status: Acute Assessment and Plan: Auto BiPAP has been ordered. Patient tolerating BiPAP here. Subjective Date/time seen: 09/23/22 14:53 Interval history: 82yo male with CAD, HTN and TUSHAR here for fever and CP. No further chest pain. No dysuria or hematuria. No lower feels feverish. No urinary frequency or urgency. Not vaccinated against COVID since original series. Chronic back pain but increased in severity. Exam Narrative: AF 98.3 120/68 55 20 99% ra Gen - NARD Chest - Bibasilar inspiratory crackles. nml RR CV - RRR S1/S2. Tele showing no significant dysrhythmias. Abd - Soft, ND, Positive BS. Very minimal tenderness to deep palpation to the RLQ Ext - trace pedal edema Psych - Nml mood and affect Skin - Warm and dry Objective Data Vital Signs Vital Signs: Vital Signs - 24 hr 09/22/22 15:11 09/22/22 15:59 09/22/22 16:04
[2022-09-23 16:05] LABS: Total Triiodothyronine (T3) 0.77 NG/ML (0.97-1.69)
[2022-09-23] MEDS: ATORVASTATIN 40 MG TABLET 80 MG BY MOUTH (20:34)
[2022-09-23] MEDS: prednisoLONE ACETATE 1% OPHTH 5 ML 1 DROP EACH EYE (20:34)
[2022-09-24] VITALS (11 sets, daily range): BP systolic 121–138; BP diastolic 65–71; PULSE 50–65; RESP 15–22; TEMP 36–36.4; O2SAT 97–100
--- NOTE | 2022-09-24 | ECHO_ITS ---
Patient Info Name: Kannan Curran Age: 82 years : 1940 Gender: Male Ht: 74 in Wt: 257 lbs BSA: 2.50 m2 HR: 51 bpm BP: 134 / 65 mmHg Heart Rhythm: Sinus Rhythm Technical Quality: Fair Exam Date: 09/24/2022 11:09 AM Exam Location: [facility] Patient Status: Inpatient Admit Date: 09/23/2022 Staff Ordering Physician: Coretta Baird NP Decorator Hand: Avis Cotton RDCS Attending Provider: Radha Amato MD Referring Physician: Brie GROVES; Exam Type: CA echo dop color flow w con Study Info Indications - CAD Complete two-dimensional, color flow and Doppler transthoracic echocardiogram is performed with contrast to opacify the left ventricle and to improve the deliniation of the left ventricle endocardial borders. Contrast/Agitated Saline Contrast/Ag. Saline: Definity Amount: 3.00 ml Administered By: Avis Cotton RDCS Existing IV Access: Yes IV Access Condition: patent with no signs of infiltration Summary 1. Technically difficult exam/definity contrast used to improve visualization. 2. Normal left ventricular size with hyperdynamic systolic function. 3. Mildly sclerotic but not stenotic aortic valve. 4. Dilated left atrium. Left Ventricle Left ventricular chamber dimension is normal. Left ventricular systolic function is hyperdynamic, estimated at >70%. The left ventricular diastolic function is grade I diastolic dysfunction. Right Ventricle Right ventricular chamber dimension is normal. Left Atria Left atrial chamber dimension is moderately enlarged. Right Atria Right atrial chamber dimension is normal. Aortic Valve The aortic valve is trileaflet. There is mild aortic valve sclerosis. Pulmonic Valve The pulmonic valve is not well visualized. Mitral Valve The mitral valve has normal leaflets. Tricuspid Valve The tricuspid valve leaflets are normal. There is trace tricuspid valve regurgitation. Pericardium/Pleural The pericardium appears normal. Aorta The aortic root size at the sinus of Valsalva is normal. Left Ventricular Outflow Tract Name Value Normal LVOT 2D LVOT Diameter 2.28 cm LVOT Doppler LVOT Peak Gradient 6 mmHg LVOT Mean Gradient 3 mmHg LVOT VTI 29.37 cm LVOT VTI/AV VTI Ratio 0.91 LVOT Stroke Volume 119.78 ml LVOT CO 5.96 l/min LVOT CI 2.38 L/min/m2 Pulmonic Valve Name Value Normal RVOT Doppler RVOT Peak Gradient 2 mmHg PV Doppler PV Peak Gradient 4 mmHg Mitral Valve Name Value Normal
[2022-09-24 04:11] LABS: Basophils Percent Auto 0.5 % (0.2-1.2); Eosinophils Absolute Auto 0.1 K/mm3 (0-0.3); Hematocrit 38.4 % (42.0-52.0); Hemoglobin 12.5 g/dL (14.0-18.0); Immature Granulocyte Absolute 0.02 K/mm3 (0.00-0.031); Immature Granulocyte Percent A 0.5 % (0-0.5); Lymphocytes Absolute Auto 0.97 K/mm3 (0.9-3.2); Lymphocytes Percent Auto 23.7 % (18.3-44.2); Mean Corpuscular HGB Conc 32.6 g/dl (32-36); Mean Corpuscular Hemoglobin 31.6 pg (26-34); Mean Corpuscular Volume 97.2 fl (80-100); Mean Platelet Volume 10.6 fl (7.4-10.4); Monocytes Absolute Auto 0.7 K/mm3 (0.1-0.6); Monocytes Percent Auto 16.6 % (2.6-8.5); Neutrophils Absolute Auto 2.3 K/mm3 (1.3-6.7); Neutrophils Percent Auto 56.7 % (45.5-73.1); Platelet Count Result 142 k/mm3 (150-375); Red Blood Count 3.95 M/mm3 (4.6-6.20); Red Cell Distribution Width 13.3 % (11.5-14.5); White Blood Count 4.1 K/mm3 (4.5-10.0)
[2022-09-24 04:21] LABS: Alanine Aminotransferase 27 U/L (6-50); Albumin Level 3.6 g/dL (3.5-5.1); Alkaline Phosphatase 46 U/L (38-126); Anion Gap 6 mmol/L (8-16); Aspartate Amino Transferase 35 U/L (17-59); Bilirubin,Total 0.9 mg/dL (0.2-1.3); Blood Urea Nitrogen 20 mg/dL (9-20); Calcium 8.5 mg/dL (8.4-10.2); Carbon Dioxide 28 mmol/L (22-30); Chloride 104 mmol/L (98-107); Estimated CRCL calculation 65 ml/min; Estimated Glomerular Filt Rate > 60; Glucose 99 mg/dL (65-110); Potassium 3.9 mmol/L (3.4-5.0); Sodium 138 mmol/L (137-145)
[2022-09-24] MEDS: metroNIDAZOLE 500 MG/ISO 100ML 500 MG/100 ML BAG 100 MG IVPB (05:45)
[2022-09-24] MEDS: atenoloL 50 MG TABLET PO (09:07)
[2022-09-24] MEDS: RANOLAZINE 500 MG TAB.ER.12H 1000 MG PO (09:12)
[2022-09-24] MEDS: CLOPIDOGREL BISULFATE 75 MG TABLET BY MOUTH (09:12)
[2022-09-24] MEDS: ISOSORBIDE MONONITRATE 60 MG TAB.ER.24H PO (09:12)
[2022-09-24] MEDS: ENOXAPARIN 40 MG/0.4 ML SYRINGE SUB-Q (09:12)
[2022-09-24] MEDS: ASPIRIN 81 MG ENTERIC TABLET PO (09:12)
[2022-09-24] MEDS: lisinopriL 10 MG TABLET PO (09:12)
[2022-09-24] MEDS: OMEGA 3 POLYUNSAT FATTY ACIDS 1 GM CAP PO (09:12)
[2022-09-24] MEDS: MULTIVITAMINS THERAPEUTIC TAB (*BKC) 1 TABLET PO (09:12)
[2022-09-24] MEDS: CHOLECALCIFEROL 1,000 UNITS TABLET 5000 UNITS PO (09:12)
[2022-09-24] MEDS: PERFLUTREN LIPID MICROSPHERES 1.5 ML VIAL DILUTED TO 10 ML TOTAL VOLUME IV PUSH (11:38)
[2022-09-24] MEDS: cefTRIAXone 2 GM/NS 100 ML 2 GM/100 ML BAG IVPB (12:12)
--- NOTE | 2022-09-24 13:11 | IVDEFINITY ---
Prior to administration of IV Definity the patient was educated on the risks and benefits of the imaging enhancing agent including potential adverse side effects. The patient verbalized understanding. Allergies were verified. No exclusion criteria were identified and at least one of the following inclusion criteria were met: 1) physician request, 2) patient technically difficult to image (per the [place] [employer]chocardi[employer] guidelines of two or more segments not discernable within the apical view), or 3) questionable left ventricular function. ?
--- NOTE | 2022-09-24 14:22 | PM.PNGS ---
Progress Note: A&P Assessment and Plan (1) Chronic appendicitis: Code(s): K36 - Other appendicitis Status: Acute Assessment and Plan: exam benign, cont diet as tolerated, no acute surgical issues, ok to dc home from surgical standpoint Subjective Subjective Date/Time Seen: 09/24/22 14:22 Interval history: feels great , no further CP, abd pain, venkata diet Review of Systems Review of Systems: All systems reviewed & are unremarkable except as noted in HPI and below Exam Const: General: cooperative, comfortable and no acute distress Resp: Auscultation: clear to auscultation bilaterally Cardio: Rate: regular rate Rhythm: regular rhythm GI: Inspection: normal to inspection and non-distended GI Palp: No abdominal tenderness, Yes Soft to palpation, No Tenderness to palpation present (GI) and No Guarding due to palpation present (GI) Objective Data Vital Signs Vital Signs: Vital Signs - 24 hr 09/23/22 16:00 09/23/22 16:00 09/23/22 18:00 Temperature 36.9 C Pulse Rate 57 L 54 L 63 Respiratory Rate 28 H Blood Pressure 120/55 L Pulse Oximetry 96 Oxygen Delivery 09/23/22 20:00 09/23/22 20:00 09/23/22 22:05 Temperature 36.4 C L Pulse Rate 56 L Respiratory Rate 22 H 16 Blood Pressure 112/57 L Pulse Oximetry 94 Oxygen Delivery Room Air Autopap 09/23/22 23:50 09/23/22 20:00 09/23/22 22:00 Temperature 36.5 C Pulse Rate 54 L 57 L 57 L Respiratory Rate 22 H Blood Pressure 109/51 L Pulse Oximetry 96 Oxygen Delivery 09/24/22 00:00 09/24/22 02:00 09/24/22 00:00 Temperature Pulse Rate 51 L 52 L Respiratory Rate Blood Pressure Pulse Oximetry Oxygen Delivery Room Air 09/24/22 02:31 09/24/22 03:45 09/24/22 04:00 Temperature 36.3 C L Pulse Rate 51 L Respiratory Rate 15 22 H Blood Pressure 134/65 Pulse Oximetry 97 Oxygen Delivery Autopap Room Air 09/24/22 04:00 09/24/22 06:00 09/24/22 08:00 Temperature 36.4 C Pulse Rate 51 L 51 L 50 L Respiratory Rate 18 Blood Pressure 138/71 Pulse Oximetry 100 Oxygen Delivery 09/24/22 09:07 09/24/22 12:00 Temperature 36.0 C L Pulse Rate 62 51 L Respiratory Rate 18 Blood Pressure 121/66 Pulse Oximetry 100 Oxygen Delivery Intake/Output Intake/Output: Intake & Output 09/21/22 09/22/22 09/23/22 09/24/22 23:59 23:59 23:59 23:59 Intake Total 1400 1540 1110 Output Total 650 2100 900 Balance 750 -560 210 Meds/Results Medications: Active Medications Generic Name Dose Route Start Last Admin Trade Name Jean PRN Reason Stop Dose Admin Aspirin 81 mg 09/23/22 09:00 09/24/22 09:12 Aspirin 81 Mg Enteric Tablet PO 81 mg QAM ITALIA Administration Atenolol 50 mg 09/23/22 09:00 09/24/22 09:07 Atenolol 50 Mg Tablet PO 50 mg DAILY ITALIA Administration Atorvastatin Calcium 80 mg 09/23/22 21:00 09/23/22 20:34 Atorvastatin 40 Mg Tablet BY MOUTH 80 mg HS ITALIA Administration Clopidogrel Bisulfate 75 mg 09/23/22 09:00 09/24/22 09:12 Clopidogrel Bisulfate 75 Mg Tablet BY MOUTH 75 mg DAILY ITALIA Administration Enoxaparin Sodium 40 mg 09/23/22 09:00 09/24/22 09:12 Enoxaparin 40 Mg/0.4 Ml Syringe SUB-Q 40 mg DAILY ITALIA Administration Fish Oil 1 gm 09/23/22 09:00 09/24/22 09:12 [place] 3 Polyunsat Fatty Acids 1 Gm Cap PO 1 gm DAILY ITALIA Administration Ceftriaxone Sodium 2 gm in 100 mls @ 200 mls/hr 09/23/22 12:00 09/24/22 12:12 Rocephin 2 Gm/Ns 100 Ml IVPB 200 mls/hr NOON ITALIA Administration Isosorbide Mononitrate 60 mg 09/23/22 09:00 09/24/22 09:12 Isosorbide Mononitrate 60 Mg Tab.Er.24h PO 60 mg DAILY ITALIA Administration Lisinopril 10 mg 09/23/22 09:00 09/24/22 09:12 Lisinopril 10 Mg Tablet PO 10 mg DAILY ITALIA Administration Metronidazole 500 mg 09/24/22 14:00 Metronidazole 250 Mg Tablet PO Q8HR [facility] Multivitamins Therapeutic 1 tablet 09/23/22 09:00
--- NOTE | 2022-09-24 14:35 | PCCCNOTE ---
On 09/24/22, the student, [Maxine Baeza], provided care and completed [facility] documentation on this patient. I have reviewed the student's documentation and agree with the findings.
[2022-09-24] MEDS: metroNIDAZOLE 250 MG TABLET 500 MG PO (15:01)
--- NOTE | 2022-09-24 16:47 | PM.DS ---
DS: Admitting Diagnosis Discharge Date 09/24/22 Admitting Diagnosis Chest pain and fevers DS: Discharge Diagnosis Discharge Diagnosis (1) Chest discomfort: Code(s): R07.89 - Other chest pain Status: Acute (2) Elevated troponin: Code(s): R77.8 - Other specified abnormalities of plasma proteins Status: Acute (3) Chronic appendicitis: Code(s): K36 - Other appendicitis Status: Acute (4) UTI (urinary tract infection): Code(s): N39.0 - Urinary tract infection, site not specified Status: Acute (5) Fever: Code(s): R50.9 - Fever, unspecified Status: Acute (6) CAD (coronary artery disease): Code(s): I25.10 - Atherosclerotic heart disease of [place] coronary artery without angina pectoris Status: Acute (7) Hyperlipidemia: Code(s): E78.5 - Hyperlipidemia, unspecified Status: Acute (8) Hypertension: Code(s): I10 - Essential (primary) hypertension Status: Acute (9) Obstructive sleep apnea: Code(s): G47.33 - Obstructive sleep apnea (adult) (pediatric) Status: Acute DS: Summary Hospital Course Reason for hospitalization: 82yo male with CAD, HTN and TUSHAR here for fever and CP. Please see H&P for details. Hospital Course: Patient presents with chest pain and fevers. Troponin elevated at 0.233 but trending down from there. EKG showing NSR and normal appearing EKG. He has a hx of CAD s/p CABG x5 in [address] Perez at [facility].?He has known diffuse CAD and small vessels. Echo showing EF 70% with Grade I diastolic dysfunction. Cardiology was consulted.?The patient had no further complaints of chest pain. Medical therapy was continued with Plavix, aspirin, atenolol, Imdur, atorvastatin and Ranexa. Patient also with fever present on admission. He has known abnormalities of his appendix from 2013. No elevated WBC. No documented fevers here. UA noted and UCx growing EColi (sensitivities pending). BCx NGTD. He was started on Rocephin and Flagyl. GenSurg was consulted. He had clinical improvement. He overall did well and was able to be discharged home o 09/24/22. Status at Discharge Cognitive/behavioral status at discharge: stable Time Spent with Patient Time attestation: Total time spent providing and/or coordinating discharge services: 38 minutes Time spent: Greater than 30 minutes Exam Narrative: AF 96.8 121/66 51 18 100% ra Gen - NARD Chest - CTA bilaterally. nml RR CV - RRR S1/S2. Tele showing no significant dysrhythmias. Abd - Soft, ND/NT, Positive BS. Ext - trace pedal edema Psych - Nml mood and affect Skin - Warm and dry DS: Data Data Completed and Pending Labs on day of discharge: Labs from last 24 hours 09/24/22 03:38 WBC 4.1 L RBC 3.95 L Hgb 12.5 L Hct 38.4 L MCV 97.2 MCH 31.6 MCHC 32.6 RDW 13.3 Plt Count 142 L MPV 10.6 H Immature Gran % (Auto) 0.5 Neut % (Auto) 56.7 Lymph % (Auto) 23.7 [place] % (Auto) 16.6 H Eos % (Auto) 2.0 Baso % (Auto) 0.5 Lymph # (Auto) 0.97 [place] # (Auto) 0.7 H Eos # (Auto) 0.1 Baso # (Auto) 0.0 Abs Immat Gran (auto) 0.02 Absolute Neuts (auto) 2.3 Absolute Nucleated RBC 0.0 Nucleated RBC % 0.0 Sodium 138 Potassium 3.9 Chloride 104 Carbon Dioxide 28 Anion Gap 6 L BUN 20 Creatinine 1.10 Estim Creat Clear Calc 65 Estimated GFR > 60 Glucose 99 Calcium 8.5 Magnesium 2.0 Total Bilirubin 0.9 AST 35 ALT 27 Alkaline Phosphatase 46 Total Protein 7.0 Albumin 3.6 Preliminary micro results at discharge 09/22/22 16:11 Urine Culture - Preliminary Urine Clean Catch Escherichia Coli 09/22/22 15:50 Blood Culture - Preliminary Blood 09/22/22 15:51 Blood Culture - Preliminary Blood Discharge Plan Discharge Attending physician on discharge: Hussein Boss Consulting providers: Kiki Tavarez; Sada Brice Discharging Clinician: Judson
--- NOTE | 2022-09-26 07:53 | PC.NURSE ---
Final urine cx shows ecoli. Results shown to Dr. Boss.
--- NOTE | 2022-10-02 06:52 | PC.NURSE ---
Blood cx are negative. Dr. Karyn jules.
== END 2022-09-24 17:50 | disposition home or self-care (01) | DRG 690 ==
LOC: ANHED 15:31 → ANHIMU 18:09
PROVIDERS: Nurse Practitioner; Admitting Provider Family Medicine; Emergency Provider Emergency Medicine; PCP Family Medicine; Visit Provider Internal Medicine
DX: R77.8 Other specified abnormalities of plasma proteins; N39.0 Urinary tract infection, site not specified; B96.20 Unspecified Escherichia coli [E. coli] as the cause of diseases classified elsewhere; E78.5 Hyperlipidemia, unspecified; G47.33 Obstructive sleep apnea (adult) (pediatric); I25.10 Atherosclerotic heart disease of native coronary artery without angina pectoris; I10 Essential (primary) hypertension; K52.9 Noninfective gastroenteritis and colitis, unspecified; K36 Other appendicitis; M19.90 Unspecified osteoarthritis, unspecified site; R07.89 Other chest pain; R91.8 Other nonspecific abnormal finding of lung field; Z79.82 Long term (current) use of aspirin; Z95.1 Presence of aortocoronary bypass graft; Z79.02 Long term (current) use of antithrombotics/antiplatelets; Z20.822 Contact with and (suspected) exposure to COVID-19; Z90.49 Acquired absence of other specified parts of digestive tract
CPT/HCPCS: 36415; 71275; 74176; 74177; 80053; 81001; 83605; 83690; 83735; 83880; 84439; 84443; 84480; 84484; 85025; 85610; 85730; 86140; 87040; 87077; 87086; 87186; 87637; 93005; 94002; 96361; 96365; 96366; 96367; 96372; 96375; 99285; A9270; C8929; G0378; J0696; J1650; J1836; J7030; Q9957; Q9967

== ENCOUNTER 2022-12-27 08:31 | Outpatient (CLI) | payer MEDICARE, OTHER, SELFPAY ==
[2022-12-27 09:24] LABS: Basophils Percent Auto 0.4 % (0.2-1.2); Eosinophils Absolute Auto 0.1 K/mm3 (0-0.3); Eosinophils Percent Auto 1.9 % (0-4.4); Hematocrit 40.1 % (42.0-52.0); Immature Granulocyte Absolute 0.02 K/mm3 (0.00-0.031); Immature Granulocyte Percent A 0.4 % (0-0.5); Lymphocytes Absolute Auto 1.35 K/mm3 (0.9-3.2); Lymphocytes Percent Auto 25.8 % (18.3-44.2); Mean Corpuscular HGB Conc 32.4 g/dl (32-36); Mean Corpuscular Hemoglobin 31.5 pg (26-34); Mean Corpuscular Volume 97.1 fl (80-100); Monocytes Absolute Auto 0.5 K/mm3 (0.1-0.6); Monocytes Percent Auto 9.2 % (2.6-8.5); Neutrophils Absolute Auto 3.3 K/mm3 (1.3-6.7); Neutrophils Percent Auto 62.3 % (45.5-73.1); Platelet Count Result 172 k/mm3 (150-375); Red Blood Count 4.13 M/mm3 (4.6-6.20); Red Cell Distribution Width 13.9 % (11.5-14.5); White Blood Count 5.2 K/mm3 (4.5-10.0)
[2022-12-27 09:43] LABS: Alanine Aminotransferase 26 U/L (6-50); Albumin Level 4.1 g/dL (3.5-5.1); Alkaline Phosphatase 51 U/L (38-126); Anion Gap 8 mmol/L (8-16); Aspartate Amino Transferase 29 U/L (17-59); Bilirubin,Total 1.1 mg/dL (0.2-1.3); Blood Urea Nitrogen 20 mg/dL (9-20); Calcium 8.9 mg/dL (8.4-10.2); Carbon Dioxide 27 mmol/L (22-30); Chloride 104 mmol/L (98-107); Cholesterol 132 mg/dL (0-200); Estimated Glomerular Filt Rate 53; Glucose 102 mg/dL (65-110); HDL Direct 36 mg/dL; Potassium 3.9 mmol/L (3.4-5.0); Sodium 139 mmol/L (137-145); Triglycerides 132 mg/dL (<150)
[2022-12-27 09:54] LABS: LDL Cholesterol Direct 68 mg/dL
== END 2022-12-27 08:32 | disposition home or self-care (01) ==
LOC: ANHLAB 08:34
PROVIDERS: PCP Family Medicine; Visit Provider Internal Medicine Interventional Cardiology
DX: I25.718 Atherosclerosis of autologous vein coronary artery bypass graft(s) with other forms of angina pectoris (principal); E78.2 Mixed hyperlipidemia; I10 Essential (primary) hypertension; Z79.01 Long term (current) use of anticoagulants
CPT/HCPCS: 36415; 80053; 80061; 85025

== ENCOUNTER 2024-06-17 08:49 | Emergency (ER) | payer MEDICARE, OTHER, SELFPAY ==
--- NOTE | ~2024-06-17 | US_ITS ---
EXAMINATION: US_ABSCYSTIMG_US DATE: 06/17/2024 15:25 INDICATION: Complex cystic right parotid lesion seen on prior CT. TECHNIQUE: The procedure including the risks and benefits was discussed with the patient. Risks discu ssed included bleeding, infection, nerve injury and allergic reaction. The patient understood the ris ks and agreed to proceed. The skin overlying the right parotid was prepped and draped in usual steri le fashion. Anesthetic was administered with 1% lidocaine subcutaneously. An 21 gauge needle was ad vanced under continuous ultrasound observation into the lesion of interest. 1 mL of opaque reddish-or erin-colored fluid was aspirated and sent to lab for Gram stain, cultures and cytology. The needle w as removed and the entry site was cleaned and dressed. Post procedure ultrasound demonstrated no hem orrhage. FINDINGS: Ultrasound images demonstrate aspiration needle within a 3 cm very hypoechoic lesion in the posterior right parotid with peripheral hyperemia but no internal vascular flow on color Doppler, li jakob complex cystic. IMPRESSION: 1. Successful Ultrasound-guided aspiration 1 mL of opaque zealnqr-fysofd-pdprznz fluid from a 3 cm li jakob complex cystic right parotid lesion. Reviewed, dictated and finalized at location A. IMPRESSION: 1. Successful Ultrasound-guided aspiration 1 mL of opaque jwwhiik-jrwdnp-qlbpxg d fluid from a 3 cm likely complex cystic right parotid lesion.
--- NOTE | ~2024-06-17 | CT_ITS ---
EXAMINATION: CT facial bones w con DATE: 06/17/2024 11:00 INDICATION: Right facial swelling TECHNIQUE: Computed tomography (CT) of the facial bones and maxillofacial region was performed withou t intravenous contrast. Coronal reconstructions were obtained. Automated exposure control and iterati ve reconstruction technique were employed. The dose-length product was 327.82 mGy-cm. COMPARISON: None. FINDINGS: There is inflammatory stranding surrounding the right parotid gland. Within the posterior right parot id gland there is a 3.0 x 2.4 x 2.7 cm relatively low density lesion with peripheral enhancement with suggestion of some tiny enhancing internal vessels and would favor solid neoplasm or suppurative lym ph node over abscess. There is also right otitis externa with skin thickening and edema in the surrou nding fat resulting in narrowing of the right external auditory canal. The left parotid gland and juan c ateral submandibular glands are normal. Relatively symmetric normal sized bilateral cervical lymph no ranjan. Changes of bilateral intraocular lens replacement. Orbits are otherwise normal. Paranasal sinuse s, mastoid air cells and middle ear cavities are clear. There are bridging osteophytes at multiple le vels in the cervical spine consistent with diffuse idiopathic skeletal hyperostosis (DISH). IMPRESSION: 1. Right otitis externa with additional stranding surrounding the right parotid gland which contains a 3.0 x 2.4 x 2.7 cm relatively low density mass which could represent neoplasm, suppurative lymph no de/necrotic lymph node or less likely abscess. Correlate clinically and could consider ultrasound for further evaluation with either biopsy or aspiration as clinically indicated. Reviewed, dictated and finalized at location A. IMPRESSION: 1. Right otitis externa with additional stranding surrounding the right parotid gland which contains a 3.0 x 2.4 x 2.7 cm relatively low density mass which co uld represent neoplasm, suppurative lymph node/necrotic lymph node or less like ly abscess. Correlate clinically and could consider ultrasound for further eval uation with either biopsy or aspiration as clinically indicated.
[2024-06-17 08:59] VITALS: BP 133/72; PULSE 97; RESP 18; TEMP 36.6; O2SAT 99
--- OUTSIDE RECORDS SUMMARY | 2024-06-17 09:06 | XMS_ITS | Encounter Summary ---
Author Organization 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 us Historical Provider Final Res ult * CARDIOLOGY REPORT (08/17/2016 12:00 AM CDT) Anatomical Region Laterality Modality Other Narrative 08/17/2016 12:00 AM CDT Ordered by an unspecified provider. us Historical Provider CV CARDIAC SERVICES PROCE DURES Final Result documented in this encounter Visit Diagnoses Not on filedocumented in this encounter Care Teams Client Representative Relationship Specialty Start Date End Date Eulalio Perez MD [address] [place] [id number] PCP - Cardiology 03/18/16 06/06/18 Kobe Keith MD [address] [place] [address] PCP - General 06/05/18 documented as of this encounter
--- OUTSIDE RECORDS SUMMARY | 2024-06-17 09:06 | XMS_ITS | Clinical Summary ---
Author Organization [facility] Address [facility] [place] [address] Care Team Providers Care Draw Operator Name Role Phone Kobe Keith MD Primary Care Provider Social History Tobacco Use Types Packs/Day Years Used Date Smoking Tobacco: Never Assessed Sex and Gender Information Value Date Recorded Sex Assigned at Not on file Legal Sex Male 5:39 PM CDT Gender Identity Not on file Sexual Orientation Not on file Plan of Treatment Health Maintenance Due Date Last Done Comments DTaP, Tdap and Td Vaccines ( 1 - Tdap) 1961 Zoster Vaccines (1 of 2) 1992 Pneumococcal Vaccine: 65+ Ye ars (1 of 1 - PCV) 05/28/2007 RSV Immunization or 60+ Years (1 - 1-dose 75+ series) 2017 COVID-19 Vaccine ( - 2023-2 5 season) 2023 Influenza Adult (#1) 2023 Meningococcal B Vaccine Aged Out No l onger eligible based on patient's age to complete this topic Meningococcal Vaccine Aged Out No cliff deniz eligible based on patient's age to complete this topic RSV Immunizations Under 20 Months Aged Out No longer eligible based on patient's age to complete this topic Care Teams Draw Operator Relationship Specialty Start Date End Date Kobe Keith MD [address] [place] [address] PCP - General 01/15/12
--- OUTSIDE RECORDS SUMMARY | 2024-06-17 09:06 | XMS_ITS | Encounter Summary ---
Author Organization 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 Historical Provider Final Res ult documented in this encounter Visit Diagnoses Not on filedocumented in this encounter Care Teams Showroom Sales Consultant Relationship Specialty Start Date End Date Eulalio Perez MD [address] [place] [id number] PCP - Cardiology 03/18/16 06/06/18 Kobe Keith MD [address] [place] [address] PCP - General 06/05/18 documented as of this encounter
--- OUTSIDE RECORDS SUMMARY | 2024-06-17 09:06 | XMS_ITS | Referral Summary ---
Author Organization [facility] at [facility] Address [address] [place] [address] Care Team Providers Care Rn Unit Manager Name Role Phone Kobe Keith MD Primary Care Provid er Encounters Date Type Department Care Team Description 06/17/2024 Nurse Triage [facility] Family Medicine [address] [phone] Kobe Keith MD 05/28/2024 10:45 AM CDT Office Visit [facility] Pulmonary [place] [address] [place] [address] Rocio Cano NP TUSHAR (obstructive sleep apnea) (Primary Dx) from Last 3 Months Allergies No known active allergies Medications mv, min #36-iron,carbony l-FA 16 mg iron- 0.38 mg tablet Rx: Geritol Complete - Tablet Active aspirin 81 mg chewable tablet Take 1 tablet (81 mg total) by mouth daily 90 tablet 3 4 08/15/19 25 Active atorvastatin (LIPITOR) 80 mg tablet Take 1 tablet (80 mg total) by mouth daily 90 tablet 3 4 08/15/19 25 Active cholecalciferol (VITAMIN D-3) 2000 unit capsule Take 1 capsule (2,000 Units total) by mouth 2 (two) times a day 180 capsule 3 4 08/15/19 25 Active glucosamine HCl/chondroitin urbano (glucosamine-cho ndroitin) 750-600 mg tablet,chewable Take 2 tablet/chew tab by mouth daily 90 tablet 3 4 08/15/19 25 Active lisinopriL (PRINIVIL,ZESTRI L) 10 mg tablet Take 1 tablet (10 mg total) by mouth daily 90 tablet 3 4 08/15/19 25 Active omega-3 fatty acids-fish oil 300-1,000 mg capsule Take 1 capsule (1,000 mg total) by mouth daily 90 capsule 3 4 08/15/19 25 Active clopidogreL (PLAVIX) 75 mg tablet Take 1 tablet (75 mg total) by mouth daily 90 tablet 3 4 09/05/19 25 Active atenoloL (TENORMIN) 25 mg tablet Take 1 tablet (25 mg total) by mouth daily 90 tablet 3 4 09/05/19 25 Active isosorbide mononitrate ER (IMDUR) 60 mg 24 hr tablet Take 1.5 tablets (90 mg total) by mouth daily 135 tablet 3 4 09/05/19 25 Active ranolazine ER (Ranexa) 500 mg 12 hr tablet Take 1 tablet (500 mg total) by mouth 2 (two) times a day 180 tablet 3 4 09/05/19 25 Active nitroglycerin (NITROLINGUAL) 400 mcg/spray sprayIndications :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 Place 1 spray under the tongue as needed for chest pain 1 g 3 4 02/20/20 25 Active Active Problems Problem Noted Date Diagnosed Date S/P CABG x 5 09/05/2023 Overview (09/05/2023): (song to the LAD, radial graft to the OM 2 and3, SVG-ramus, SVG-PDA) Primary hypertension 12/18/2021 Nonrheumatic tricuspid valve regurgitation 12/18 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 From least invasive to most invasive: The ongoing improvement to slow the progression of osteoarthritis as weight loss. For rebound lost 4 subchondral stress is relieved from the knee. Formal physical therapy to help with flexion, extension, mobility and strength. Unloading braces to unload the affected side. The possibility of focal tenderness. Nonsteroidal anti- inflammatories with the potential of cardiac and GI upset. Steroid and Visco supplement injection. And eventual total knee arthroplasty. After going over the risks, benefits and alternatives it is too soon to proceed with repeat steroid at this time. However, we can certainly consider viscosupplementation in the future. His symptoms are currently well managed under conservative treatment and we will continue to do that. Continue with weight loss as well. Follow up as needed Obesity (BMI 30-39.9) 06/24/2018 Assessment & Plan (06/24/2018 11:13 AM CDT): Weight loss with low carbohydrate diet. We spent approximately 20 minutes discussing low carbohydrate diet and it affects on sugar control and diabetes. Trying to keep carbohydrate under 30 g daily along with slight increase in healthy fats, moderate protein and unlimited non-starchy vegetables. Would consider marked increase in water consumption as well as electrolyte replacement with [id number] electrolytes solutions/drinks. Written instructions were given. All questions are answered. Positive cardiac stress test 08/22/2016 Overview (06/24/2018): For exertional chest pain and positive treadmill Myoview stress test with [address] depressions in inferolateral leads and ischemia in the apical portion of the inferior wall on 08/17/2016 Dyspnea on exertion 07/19/2015 Overview (06/24/2018): stable with no ischemia on a treadmill nyhocardial perfusion stress test on 10/09/12. Elevated AST (SGOT) 07/19/2015 Overview (06/24/2018): elevated ast/alt on simvastatin and fenofibrate, normalized on atorvastatin History of colon cancer 07/19/2015 Overview (06/24/2018): s/p Descending colon resection with negative lymph nosdes on 05/30/09. TUSHAR (obstructive sleep apnea) 07/19/2015 Overview (05/29/2021): compliant with his cpap managed by Dr Starr. Assessment & Plan (05/28/2024 11:13 AM CDT): The patient continue to wear CPAP at 8 cm water pressure while sleeping. His DME is [facility]. Assessment & Plan (05/28/2023 12:34 PM CDT): Patient continue to wear CPAP at 8 cm water pressure while sleeping. His DME is [facility]. I have sent an order over for new supplies. Assessment & Plan (05/29/2021 10:19 AM CDT): Patient continue to wear his CPAP at 8 cm water pressure while sleeping. His DME is [facility]. 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 His DME is [facility]. Renal insufficiency 07/19/2015 Vitamin D deficiency 07/19/2015 Overview (06/24/2018): normalized on supplemention. CAD (coronary artery disease) 07/19/2015 Overview (06/24/2018): s/p 5 vessel cabg on 07/29/2001(.with a SONG to the LAD, saphenous vein graft to the ramus intermedius branch, saphenous vein graft to the posterior descending coronary artery with a left radial artery graft to the obtuse marginal 1 branch sequential to the Assessment & Plan (06/24/2018 11:12 AM CDT): With significant cardiac disease unable to utilize nonsteroidal anti- inflammatories as treatment option. Dyslipidemia 07/19/2015 Overview (06/24/2018): On atorvastatin 80 mg daily with LDL and triglycerides at goal and HDL being low. Immunizations Immunization Administration Dates Next Due Influenza, Unspecified 03/08/2023(Deferr ed: Patient Refused),03/07/2022(Deferred: Patient Refused),03/06/2021(Deferred: Patient Refused),03/03/2020(Deferred: Patient Refused),12/28/2010 Pneumococcal Polysaccharide PPV23 08/01/2006 Td, adsorbed 09/22/2003 Tdap 11/06/2016 Social History Tobacco Use Types Packs/Day Years Used Date Smoking Tobacco: Never Cigarettes Smokeless Tobacco: Never Tobacco Cessation:Counseling Given: Not Answered Comments:Secondary smoke during [employer] career, [id number] Alcohol Use Standard Drinks/Week Comments Never 0 (1 standard drink = 0.6 oz pur e alcohol) AUDIT-C Answer Date Recorded Q1: How often do you have a drink containing alcohol? Never 08/15/2023 Q2: How many drinks containi ng alcohol do you have on a typical day when you are drinking? Patient does not drink Q3: How often do you have si x or more drinks on one occasion? Never 08/15/2023 PHQ-2 Answer Date Recorded PHQ-2 Total Score 0 03/08/2023 Personal Safety Answer Date Recorded Have you ever been in or are you currently in a harmful physical or emotional relationship or is someone making you feel afraid or unsafe? 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 on file Not on file Not on file Last Filed Vital Signs Vital Sign Reading Time Taken Comments Blood Pressure 122/62 05/28/2024 10:30 AM CDT Pulse 82 05/28/2024 10:30 AM CDT Temperature 36.7 C (98.1 F) 05/28/2024 10:30 AM CDT Respiratory Rate 18 05/28/2024 10:30 AM CDT Oxygen Saturation 95% 05/28/2024 10:30 AM CDT Inhaled Oxygen Concentration - - Weight 126.1 kg (278 lb) 05/28/2024 10:30 AM CDT Height 182.9 cm (6') 05/28/2024 10:30 AM CDT Body Mass Index 37.7 05/28/2024 10:30 AM CDT Plan of Treatment Not on file Medical Devices Implanted Type Area Staff Physical Therapist Device Identifier Shelf Expiration Date Model / Serial / Lot [employer] Perclose 6fr Vascular Closure [id number] - [id number] Implanted:Qty: 1 on 08/15/2023 by Yuliana Rock MD at [facility] [employer] 12/15/2024 [id number] / / [id number] Insurance MEDICARE [employer] LIFE MEDICARE FOR LIFE Advance Directives For more information, please contact: [phone] * Full Code (Latest Code Status on File) Date Activated Date Inactivated Comments 08/15/2023 10:54 AM 08/15/2023 5:38 PM Care Teams Rn Unit Manager Relationship Specialty Start Date End Date Kobe Keith MD [address] [place] [address] PCP - General 06/05/18
--- OUTSIDE RECORDS SUMMARY | 2024-06-17 09:06 | XMS_ITS | Encounter Summary ---
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 us Historical Provider Final Res ult documented in this encounter Visit Diagnoses Not on filedocumented in this encounter Care Teams Nuclear Control Operator Relationship Specialty Start Date End Date Eulalio Perez MD [address] [place] [address] PCP - Cardiology 03/18/16 06/06/18 Kobe Keith MD [address] [place] [address] PCP - General 06/05/18 documented as of this encounter
--- OUTSIDE RECORDS SUMMARY | 2024-06-17 09:06 | XMS_ITS | Clinical Summary ---
Author Organization [facility] at [facility] Address [address] [place] [address] Care Team Providers Care Probation Counselor Name Role Phone Kobe Keith MD Primary Care Provid er Allergies No known active allergies Medications mv, min #36-ironsherwin l-FA 16 mg iron- 0.38 mg tablet [...] consumption as well as electrolyte replacement with fbyq-vkp-qruybbj electrolytes solutions/drinks. Written instructions were given. All [...] colon resection with negative lymph nosdes on 3/15/10. TUSHAR (obstructive sleep apnea) 07/19/2015 Overview (05/29/2021): [...] Plus. Assessment & Plan (2020 10:48 AM SOLE SPLITTER): The patient continue to wear his CPAP [...] triglycerides at goal and HDL being low. Encounters Date Type Department Care Team Description 06/17/2024 Nurse Triage [facility] Family Medicine [address] [place] [phone] Kobe Keith MD 05/28/2024 10:45 AM CDT Office Visit [facility] Pulmonary [address] [place] [phone] Rocio Cano NP TUSHAR (obstructive sleep apnea) (Primary Dx) from Last 3 Months Immunizations Immunization Administration Dates Next Due Influenza, Unspecified 03/08/2023(Deferr ed: Patient Refused),03/07/2022(Deferred: Patient Refused),03/06/2021(Deferred: Patient Refused),03/03/2020(Deferred: Patient Refused),12/28/2010 Pneumococcal Polysaccharide PPV23 08/01/2006 Td, adsorbed 09/22/2003 Tdap 11/06/2016 Surgical History Surgery Date Site/Laterality Comments BYPASS GRAFT 07/29/2001 cardiac bypass graft - 5 vessels COLON SURGERY 05/30/2009 colon cancer, descending colon removed CHOLECYSTECTOMY 11/26/2011 CORONARY ARTERY BYPASS GRAFT 07/29/2001 VASECTOMY 01/1971 CARDIAC CATHETERIZATION 08/15/2023 Left Medical History Medical History Date Comments Hypertension Hypercholesteremia Anemia Coronary artery disease Sleep apnea Cancer (HCC) May 2009 Cataract February 2022 Family History Medical History Relation Name Comments Heart disease Father Sam Curran Alzheimer's disease Mother Laila Curran Cancer Mother Laila Curran COPD Other Heart disease Other Lung disease Other Stroke Other Relation Name Status Comments Father Sam Curran Mother Laila Curran Other Social History Tobacco Use Types Packs/Day Years Used Date Smoking Tobacco: Never Cigarettes Smokeless Tobacco: Never Tobacco Cessation:Counseling Given: Not Answered Comments:Secondary smoke during [employer] career, 4546-6809 Alcohol Use Standard Drinks/Week Comments Never 0 [...] on file Legal Sex Male 8:45 AM SOLE SPLITTER Gender Identity Male 06/05/2019 10:15 AM CDT Sexual Orientation Straight 06/05/2019 10 :15 AM CDT Occupation Industry Job Start Date Job End Date retired [employer] Not on file Not on file Not on 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 on file Not on file Not on file Obstetrics History Last Filed Vital Signs Vital Sign Reading [...] 05/28/2024 10:30 AM CDT Plan of Treatment Health Maintenance Due Date Last Done Comments Hepatitis B Screening 1960 Zoster Vaccine (1 of 2) 1992 Pneumococcal vaccine 65+ (2 of 2 - PCV) 08/02/2007 08/01/2006 Depression Screening 03/08/2024 03/08/2023, 03/08/2023, 03/07/2022, Additional history exists Fall Risk Assessment 03/08/2024 03/08/2023, 03/07/2022, 03/06/2021, Additional history exists Well Visit 65+ 03/08/2024 03/08/2023, 02/16, 03/07/2022, Additional history exists Influenza Vaccine (Season Ended) 2024 12/29/19 11 DTaP/Tdap/Td Vaccine (2 - Td or Tdap) 11/06/2026 11/06/2016, 09/22/2003 Medical Devices Implanted Type Area Java Web Application Developer Device Identifier Shelf Expiration Date Model / Serial / Lot [employer] V[employer] Perclose 6fr Vascular Closure [id number] - [id number] Implanted:Qty: 1 on 08/15/2023 by Yuliana Rock MD at [facility] [employer] 12/15/2024 [id number] / / [id number] Insurance MEDICARE [employer] MEDICARE FOR LIFE Advance Directives For more information, please contact: [phone] * Full Code (Latest Code Status on File) Date Activated Date Inactivated Comments 08/15/2023 10:54 AM 08/15/2023 5:38 PM Care Teams Probation Counselor Relationship Specialty Start Date End Date Kobe Keith MD [address] [place] [address] PCP - General 06/05/18
--- OUTSIDE RECORDS SUMMARY | 2024-06-17 09:06 | XMS_ITS | Encounter Summary ---
Author Organization 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 Historical Provider MD [facility] LALA Final Result documented in this encounter Visit Diagnoses Not on filedocumented in this encounter Care Teams Supervisor Composing Room Relationship Specialty Start Date End Date Eulalio ePrez MD [address] [place] [address] PCP - Cardiology 03/18/16 06/06/18 Kobe Keith MD [address] [place] [address] PCP - General 06/05/18 documented as of this encounter
--- OUTSIDE RECORDS SUMMARY | 2024-06-17 09:06 | XMS_ITS | Encounter Summary ---
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 Historical Provider Final Res ult documented in this encounter Visit Diagnoses Not on filedocumented in this encounter Care Teams Fisher Trawl Line Relationship Specialty Start Date End Date Eulalio Perez MD [address] [place] [address] PCP - Cardiology 03/18/16 06/06/18 Kobe Keith MD [address] [place] [address] PCP - General 06/05/18 documented as of this encounter
--- OUTSIDE RECORDS SUMMARY | 2024-06-17 09:06 | XMS_ITS | Encounter Summary ---
Author Organization [facility] Facility Care Team Providers Care Fibre Composite Technician Name Role Phone Eulalio Perez MD Unavailable [phone] Kobe Keith MD Primary Care Provid er Encounter Details Date Type Department Care Team (Latest Contact Info) Description 10/14/2015 Orders Only [facility] CLINCONV ProviderValentina MD [address] [place] [address] Social History Tobacco Use Types Packs/Day Years Used Date Smoking Tobacco: Never Assessed Sex and Gender Information Value Date Recorded Sex Assigned at Not on file Legal Sex Male 8:45 AM MEDIA PLANNER Gender Identity Male 06/05/2019 10:15 AM CDT Sexual Orientation Straight 06/05/2019 10 :15 AM CDT documented as of this encounter Plan of Treatment Not on file documented as of this encounter Procedures Procedure Name Priority Date/Time Associated Diagnosis Comments PROCEDURE - RESULT 10/18/2015 12 :00 AM CDT documented in this encounter Results * PROCEDURE - RESULT (10/18/2015 12:00 AM CDT) Narrative 10/18/2015 12:00 AM CDT Ordered by an unspecified provider. Historical Provider Final Res ult documented in this encounter Visit Diagnoses Not on filedocumented in this encounter Care Teams Fibre Composite Technician Relationship Specialty Start Date End Date Eulalio Perez MD [address] [place] [address] PCP - Cardiology 03/18/16 06/06/18 Kobe Keith MD [address] [place] [address] PCP - General 06/05/18 documented as of this encounter
--- OUTSIDE RECORDS SUMMARY | 2024-06-17 09:06 | XMS_ITS | Encounter Summary ---
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 Historical Provider Final Res ult documented in this encounter Visit Diagnoses Not on filedocumented in this encounter Care Teams Chip Silo Tender Relationship Specialty Start Date End Date Eulalio Perez MD [address] [place] [address] PCP - Cardiology 03/18/16 06/06/18 Kobe Keith MD [address] [place] [address] PCP - General 06/05/18 documented as of this encounter
--- OUTSIDE RECORDS SUMMARY | 2024-06-17 09:06 | XMS_ITS | Encounter Summary ---
Author Organization [facility] Healthcare Address [address] [place] [address] Care Team Providers Care Marketing Finance Manager Name Role Phone Kobe Keith MD Primary Care Provid er Reason for Visit * Reason Onset Date Comments Facial Swelling 06/17/2024 Encounter Details Date Type Department Care Team (Late st Contact Info) Description 06/17/2024 Nurse Triage [facility] Medical Group Family Medicine [address] [phone] Kobe Keith MD [address] [address] Social History Tobacco Use Types Packs/Day Years Used Date Smoking Tobacco: Never Cigarettes Smokeless Tobacco: Never Comments:Secondary smoke dur ing [employer] career, 5951-6993 Alcohol Use Standard Drinks/Week Comments Never 0 [...] file Legal Sex Male 8:45 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 For symptoms now, R swelling below and bhind near going into jaw-very painful to touch. Unsure if he has fever. Onset 06/15/24 No recent congestion or rhinorrhea. No sore throat or breathing issues. No teeth issues. No earache. No dizziness or weakness. Disposition is ED now-[facility]. Message routed for FYI-going to ED * Telephone Encounter - Pamela Andrews RN - 06/17/2024 7:56 AM CDT Reason for Disposition ??? [1] Bony area of skull behind the ear is pink or swollen AND [2] fever Protocols used: [id number] * Telephone Encounter - Pamela Andrews RN - 06/17/2024 7:45 AM CDT Regarding: facial swelling, pain, redness along jaw line ----- Message from Joya Acosta sent at 06/17/2024 7:42 AM CDT ----- Symptom Based Call Chief Complaint(s): facial swelling, pain, redness along jaw line Duration: 3 days What type of symptom(s) is the patient experiencing? Red Flag. Is the patient concerned they are experiencing a medical emergency requiring an ambulance? No Additional Comments: Patient has applied warm compresses Does message need to be routed? Yes-Action Needed documented in this encounter Plan of Treatment Not on file documented as of this encounter Visit Diagnoses Not on filedocumented in this encounter Care Teams Marketing Finance Manager Relationship Specialty Start Date End Date Kobe Keith MD [address] [place] [address] PCP - General 06/05/18 documented as of this encounter
--- OUTSIDE RECORDS SUMMARY | 2024-06-17 09:06 | XMS_ITS | Encounter Summary ---
Author Organization [facility] Facility Care Team Providers Care Coke Inspector Name Role Phone Eulalio Perez MD Unavailable [phone] Kobe Keith MD Primary Care Provid er Encounter Details Date Type Department Care Team (Latest Contact Info) Description 01/10/2016 Orders Only [facility] CLINCONV ProviderValentina MD [address] [place] [address] Social History Tobacco Use Types Packs/Day Years Used Date Smoking Tobacco: Never Assessed Sex and Gender Information Value Date Recorded Sex Assigned at Not on file Legal Sex Male 8:45 AM RN CLINICAL REVIEW Gender Identity Male 06/05/2019 10:15 AM CDT Sexual Orientation Straight 06/05/2019 10 :15 AM CDT documented as of this encounter Plan of Treatment Not on file documented as of this encounter Procedures Procedure Name Priority Date/Time Associated Diagnosis Comments SCAN - LABS 01/10/2016 12:00 AM CDT documented in this encounter Results * SCAN - LABS (01/10/2016 12:00 AM CDT) Narrative 01/10/2016 12:00 AM CDT Ordered by an unspecified provider. us Historical Provider Final Res ult documented in this encounter Visit Diagnoses Not on filedocumented in this encounter Care Teams Coke Inspector Relationship Specialty Start Date End Date Eulalio Perez MD [address] [place] [address] PCP - Cardiology 03/18/16 06/06/18 Kobe Keith MD [address] [place] [address] PCP - General 06/05/18 documented as of this encounter
--- OUTSIDE RECORDS SUMMARY | 2024-06-17 09:06 | XMS_ITS | Encounter Summary ---
Author Organization [facility] Facility Care Team Providers Care Equipment Validation Engineer Name Role Phone Eulalio Perez MD Unavailable [phone] Kobe Keith MD Primary Care Provid er Encounter Details Date Type Department Care Team (Latest Contact Info) Description 05/08/2016 Orders Only [facility] CLINCONV ProviderValentina MD [address] [place] [address] Social History Tobacco Use Types Packs/Day Years Used Date Smoking Tobacco: Never Assessed Sex and Gender Information Value Date Recorded Sex Assigned at Not on file Legal Sex Male 8:45 AM CRYSTAL GROWER Gender Identity Male 06/05/2019 10:15 AM CDT Sexual Orientation Straight 06/05/2019 10 :15 AM CDT documented as of this encounter Plan of Treatment Not on file documented as of this encounter Procedures Procedure Name Priority Date/Time Associated Diagnosis Comments SCAN - LABS 05/08/2016 12:00 AM CRYSTAL GROWER documented in this encounter Results * SCAN - LABS (05/08/2016 12:00 AM CRYSTAL GROWER) Narrative 05/08/2016 12:00 AM CRYSTAL GROWER Ordered by an unspecified provider. Historical Provider Final Res ult documented in this encounter Visit Diagnoses Not on filedocumented in this encounter Care Teams Equipment Validation Engineer Relationship Specialty Start Date End Date Eulalio Perez MD [address] [place] [address] PCP - Cardiology 03/18/16 06/06/18 Kobe Keith MD [facility] [address] [place] [address] PCP - General 06/05/18 documented as of this encounter
--- OUTSIDE RECORDS SUMMARY | 2024-06-17 09:29 | XMS_ITS | Encounter Summary ---
Author Organization [facility] Facility Care Team Providers Care Bullion Weigher Name Role Phone Eulalio Perez MD Unavailable [phone] Kobe Keith MD Primary Care Provid er Encounter Details Date Type Department Care Team (Latest Contact Info) Description 08/17/2016 Orders Only [facility] CLINCONV ProviderValentina MD [address] [place] [address] Social History Tobacco Use Types Packs/Day Years Used Date Smoking Tobacco: Never Assessed Sex and Gender Information Value Date Recorded Sex Assigned at Not on file Legal Sex Male 8:45 AM SENIOR TEST ANALYST Gender Identity Male 06/05/2019 10:15 AM CDT [...] on filedocumented in this encounter Care Teams Bullion Weigher Relationship Specialty Start Date End Date Eulalio Perez MD [address] [place] [id number] PCP - Cardiology 03/18/16 06/06/18 Kobe Keith MD [address] [place] [address] PCP - General 06/05/18 documented as of this encounter
--- OUTSIDE RECORDS SUMMARY | 2024-06-17 09:29 | XMS_ITS | Encounter Summary ---
Author Organization [facility] Facility Care Team Providers Care Animal Keeper Name Role Phone Eulalio Perez MD Unavailable [phone] Kobe Keith MD Primary Care Provid er Encounter Details Date Type Department Care Team (Latest Contact Info) Description 05/08/2016 Orders Only [facility] CLINCONV ProviderValentina MD [address] [place] [address] Social History Tobacco Use Types Packs/Day Years Used Date Smoking Tobacco: Never Assessed Sex and Gender Information Value Date Recorded Sex Assigned at Not on file Legal Sex Male 8:45 AM BRICK PITCHER Gender Identity Male 06/05/2019 10:15 AM CDT Sexual Orientation Straight 06/05/2019 10 :15 AM CDT documented as of this encounter Plan of Treatment Not on file documented as of this encounter Procedures Procedure Name Priority Date/Time Associated Diagnosis Comments SCAN - LABS 05/08/2016 12:00 AM BRICK PITCHER documented in this encounter Results * SCAN - LABS (05/08/2016 12:00 AM BRICK PITCHER) Narrative 05/08/2016 12:00 AM BRICK PITCHER Ordered by an unspecified provider. Historical Provider Final Res ult documented in this encounter Visit Diagnoses Not on filedocumented in this encounter Care Teams Animal Keeper Relationship Specialty Start Date End Date Eulalio Perez MD [address] [place] [address] PCP - Cardiology 03/18/16 06/06/18 Kobe Keith MD [facility] [address] [place] [address] PCP - General 06/05/18 documented as of this encounter
--- OUTSIDE RECORDS SUMMARY | 2024-06-17 09:29 | XMS_ITS | Encounter Summary ---
Author Organization [facility] Facility Care Team Providers Care Buckle Gluer Name Role Phone Eulalio Perez MD Unavailable [phone] Kobe Keith MD Primary Care Provid er Encounter Details Date Type Department Care Team (Latest Contact Info) Description 12/04/2016 Orders Only [facility] CLINCONV ProviderValentina MD [address] [place] [address] Social History Tobacco Use Types Packs/Day Years Used Date Smoking Tobacco: Never Assessed Sex and Gender Information Value Date Recorded Sex Assigned at Not on file Legal Sex Male 8:45 AM CIRCULAR STUFFER Gender Identity Male 06/05/2019 10:15 AM CDT [...] on filedocumented in this encounter Care Teams Buckle Gluer Relationship Specialty Start Date End Date Eulalio Perez MD [address] [place] [address] PCP - Cardiology 03/18/16 06/06/18 Kobe Keith MD [address] [place] [address] PCP - General 06/05/18 documented as of this encounter
--- OUTSIDE RECORDS SUMMARY | 2024-06-17 09:29 | XMS_ITS | Encounter Summary ---
Author Organization [facility] Facility Care Team Providers Care Genetic Physician Name Role Phone Eulalio Perez MD Unavailable [phone] Kobe Keith MD Primary Care Provid er Encounter Details Date Type Department Care Team (Latest Contact Info) Description 08/29/2016 Orders Only [facility] CLINCONV ProviderValentina MD [address] [place] [address] Social History Tobacco Use Types Packs/Day Years Used Date Smoking Tobacco: Never Assessed Sex and Gender Information Value Date Recorded Sex Assigned at Not on file Legal Sex Male 8:45 AM SURVEY FIELD TECHNICIAN Gender Identity Male 06/05/2019 10:15 AM CDT [...] on filedocumented in this encounter Care Teams Genetic Physician Relationship Specialty Start Date End Date Eulalio Perez MD [address] [place] [address] PCP - Cardiology 03/18/16 06/06/18 Kobe Keith MD [address] [place] [address] PCP - General 06/05/18 documented as of this encounter
--- OUTSIDE RECORDS SUMMARY | 2024-06-17 09:29 | XMS_ITS | Encounter Summary ---
Author Organization [facility] Facility Care Team Providers Care Jockey'S Agent Name Role Phone Eulalio Perez MD Unavailable [phone] Kobe Keith MD Primary Care Provid er Encounter Details Date Type Department Care Team (Latest Contact Info) Description 06/11/2017 Orders Only [facility] CLINCONV ProviderValentina MD [address] [place] [address] Social History Tobacco Use Types Packs/Day Years Used Date Smoking Tobacco: Never Assessed Sex and Gender Information Value Date Recorded Sex Assigned at Not on file Legal Sex Male 8:45 AM PIN PULLER Gender Identity Male 06/05/2019 10:15 AM CDT [...] on filedocumented in this encounter Care Teams Jockey'S Agent Relationship Specialty Start Date End Date Eulalio Perez MD [address] [place] [address] PCP - Cardiology 03/18/16 06/06/18 Kobe Keith MD [address] [place] [address] PCP - General 06/05/18 documented as of this encounter
--- OUTSIDE RECORDS SUMMARY | 2024-06-17 09:30 | XMS_ITS | Referral Summary ---
Author Organization [facility] at [facility] Address [address] [place] [address] Care Team Providers Care Online Publisher Name Role Phone Kobe Keith MD Primary Care Provid er Encounters Date Type Department Care Team Description 06/17/2024 Nurse Triage [facility] Family Medicine [address] [phone] Kobe Keith MD 05/28/2024 10:45 AM CDT Office Visit [facility] Medical [facility] Pulmonary [place] [address] [facility] [address] [place] [address] Rocio Cano NP TUSHAR (obstructive [...] consumption as well as electrolyte replacement with cpsb-opq-xswoniz electrolytes solutions/drinks. Written instructions were given. All [...] Plus. 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 Not on file Not on file Not [...] on file Medical Devices Implanted Type Area Bottle Capping Machine Operator Device Identifier Shelf Expiration Date Model / Serial / Lot [employer] Perclose 6fr Vascular Closure 11486-00 - [id number] Implanted:Qty: 1 on 08/15/2023 by Yuliana Rock MD at [facility] [employer] 12/15/2024 [id number] / / [id number] Insurance MEDICARE [employer] LIFE MEDICARE FOR LIFE Advance Directives For more information, please contact: [phone] * Full Code (Latest Code Status on File) Date Activated Date Inactivated Comments 08/15/2023 10:54 AM 08/15/2023 5:38 PM Care Teams Online Publisher Relationship Specialty Start Date End Date Kobe Keith MD [address] [place] [address] PCP - General 06/05/18
--- OUTSIDE RECORDS SUMMARY | 2024-06-17 09:30 | XMS_ITS | Clinical Summary ---
Author Organization [facility] at [facility] Address [address] [place] [address] Care Team Providers Care Early Head Start Director Name Role Phone Kobe Keith MD Primary [...] consumption as well as electrolyte replacement with hhse-azv-itfjzkb electrolytes solutions/drinks. Written instructions were given. All [...] Plus. Assessment & Plan (2020 10:48 AM COUNTER WAITRESS/WAITER): The patient continue to wear his CPAP [...] Department Care Team Description 06/17/2024 Nurse Triage [facility] Medical Group Family Medicine [address] [place] [phone] Kobe Keith MD 05/28/2024 10:45 AM CDT Office Visit [facility] Medical Group Pulmonary [address] [place] [phone] Rocio Cano NP TUSHAR (obstructive sleep apnea) [...] Cessation:Counseling Given: Not Answered Comments:Secondary smoke during [employer] career, 8419-3903 Alcohol Use Standard Drinks/Week Comments Never 0 [...] on file Legal Sex Male 8:45 AM COUNTER WAITRESS/WAITER Gender Identity Male 06/05/2019 10:15 AM CDT Sexual Orientation Straight 06/05/2019 10 :15 AM CDT Occupation Industry Job Start Date Job End Date retired [employer] Not on file Not on file Not on 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 on file Not on [...] 11/06/2016, 09/22/2003 Medical Devices Implanted Type Area Rubber Mold Maker Device Identifier Shelf Expiration Date Model / Serial / Lot [employer] Vascular Perclose 6fr Vascular Closure [id number] - [id number] Implanted:Qty: 1 on 08/15/2023 by Yuliana Rock MD at [facility] [employer] 12/15/2024 [id number] / / [id number] Insurance MEDICARE [email or web address] MEDICARE FOR LIFE Advance Directives For more information, please contact: [phone] * Full Code (Latest Code Status on File) Date Activated Date Inactivated Comments 08/15/2023 10:54 AM 08/15/2023 5:38 PM Care Teams Early Head Start Director Relationship Specialty Start Date End Date Kobe Keith MD [address] [place] [address] PCP - General 06/05/18
--- OUTSIDE RECORDS SUMMARY | 2024-06-17 09:30 | XMS_ITS | Encounter Summary ---
Author Organization [facility] Healthcare Address [address] [place] [address] Care Team Providers Care Cad Designer Drafter Name Role Phone Kobe Keith MD Primary Care Provid er Reason for Visit * Reason Onset Date Comments Facial Swelling 06/17/2024 Encounter Details Date Type Department Care Team (Late st Contact Info) Description 06/17/2024 Nurse Triage [facility] Medical Group Family Medicine [address] [phone] Kobe Keith MD [address] [address] Social History Tobacco Use Types Packs/Day Years Used Date Smoking Tobacco: Never Cigarettes Smokeless Tobacco: Never Comments:Secondary smoke dur ing [employer] career, 1963-0320 Alcohol Use Standard Drinks/Week Comments Never 0 [...] on file Legal Sex Male 8:45 AM ASSISTANT AT SURGERY Gender Identity Male 06/05/2019 10:15 AM CDT Sexual Orientation Straight 06/05/2019 10 :15 AM CDT Occupation Industry Job Start Date Job End Date retired [employer] Not on file Not on file Not on 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. Message routed for FYI-going to ED * Telephone Encounter - Pamela Andrews RN - 06/17/2024 7:56 AM CDT Reason for Disposition ??? [1] Bony area of skull behind the ear is pink or swollen AND [2] fever Protocols used: [id number] * Telephone Encounter - Pamela Andrews RN [...] on filedocumented in this encounter Care Teams Cad Designer Drafter Relationship Specialty Start Date End Date Kobe Keith MD [address] [place] [address] PCP - General 06/05/18 documented as of this encounter
--- OUTSIDE RECORDS SUMMARY | 2024-06-17 09:30 | XMS_ITS | Encounter Summary ---
Author Organization [facility] Facility Care Team Providers Care Cycling Instructor Name Role Phone Eulalio Perez MD Unavailable [phone] Kobe Keith MD Primary Care Provid er Encounter Details Date Type Department Care Team (Latest Contact Info) Description 12/13/2017 Orders Only [facility] CLINCONV ProviderValentina MD [address] [place] [address] Social History Tobacco Use Types Packs/Day Years Used Date Smoking Tobacco: Never Assessed Sex and Gender Information Value Date Recorded Sex Assigned at Not on file Legal Sex Male 8:45 AM POT RELINER Gender Identity Male 06/05/2019 10:15 AM CDT [...] on filedocumented in this encounter Care Teams Cycling Instructor Relationship Specialty Start Date End Date Eulalio Perez MD [address] [place] [address] PCP - Cardiology 03/18/16 06/06/18 Kobe Keith MD [address] [place] [address] PCP - General 06/05/18 documented as of this encounter
--- OUTSIDE RECORDS SUMMARY | 2024-06-17 09:30 | XMS_ITS | Clinical Summary ---
Author Organization [facility] Address [facility] [place] [address] Care Team Providers Care Financial Auditor Name Role Phone Kobe Keith MD Primary [...] age to complete this topic Care Teams Financial Auditor Relationship Specialty Start Date End Date Kobe Keith MD [address] [place] [address] PCP - General 01/15/12
--- OUTSIDE RECORDS SUMMARY | 2024-06-17 09:30 | XMS_ITS | Encounter Summary ---
Author Organization [facility] Facility Care Team Providers Care Display Fabrication Supervisor Name Role Phone Eulalio Perez MD Unavailable [phone] Kobe Keith MD Primary Care Provid er Encounter Details Date Type Department Care Team (Latest Contact Info) Description 10/14/2015 Orders Only [facility] CLINCONV ProviderValentina MD [address] [place] [address] Social History Tobacco Use Types Packs/Day Years Used Date Smoking Tobacco: Never Assessed Sex and Gender Information Value Date Recorded Sex Assigned at Not on file Legal Sex Male 8:45 AM SAP PI ARCHITECT Gender Identity Male 06/05/2019 10:15 AM CDT [...] on filedocumented in this encounter Care Teams Display Fabrication Supervisor Relationship Specialty Start Date End Date Eulalio Perez MD [address] [place] [address] PCP - Cardiology 03/18/16 06/06/18 Kobe Keith MD [address] [place] [address] PCP - General 06/05/18 documented as of this encounter
--- OUTSIDE RECORDS SUMMARY | 2024-06-17 09:30 | XMS_ITS | Encounter Summary ---
Author Organization [facility] Facility Care Team Providers Care Mapping Engineer Name Role Phone Eulalio Perez MD Unavailable [phone] Kobe Keith MD Primary Care Provid er Encounter Details Date Type Department Care Team (Latest Contact Info) Description 09/29/2015 Orders Only [facility] CLINCONV ProviderValentina MD [address] [place] [address] Social History Tobacco Use Types Packs/Day Years Used Date Smoking Tobacco: Never Assessed Sex and Gender Information Value Date Recorded Sex Assigned at Not on file Legal Sex Male 8:45 AM INTERLOCKER MAINTAINER Gender Identity Male 06/05/2019 10:15 AM CDT [...] on filedocumented in this encounter Care Teams Mapping Engineer Relationship Specialty Start Date End Date Eulalio Perez MD [address] [place] [address] PCP - Cardiology 03/18/16 06/06/18 Kobe Keith MD [address] [place] [address] PCP - General 06/05/18 documented as of this encounter
--- OUTSIDE RECORDS SUMMARY | 2024-06-17 09:30 | XMS_ITS | Encounter Summary ---
Author Organization [facility] Facility Care Team Providers Care Manager Studio Name Role Phone Eulalio Perez MD Unavailable [phone] Kobe Keith MD Primary Care Provid er Encounter Details Date Type Department Care Team (Latest Contact Info) Description 01/10/2016 Orders Only [facility] CLINCONV ProviderValentina MD [address] [place] [address] Social History Tobacco Use Types Packs/Day Years Used Date Smoking Tobacco: Never Assessed Sex and Gender Information Value Date Recorded Sex Assigned at Not on file Legal Sex Male 8:45 AM FREELANCE DIRECTOR Gender Identity Male 06/05/2019 10:15 AM CDT [...] on filedocumented in this encounter Care Teams Manager Studio Relationship Specialty Start Date End Date Eulalio Perez MD [address] [place] [address] PCP - Cardiology 03/18/16 06/06/18 Kobe Keith MD [address] [place] [address] PCP - General 06/05/18 documented as of this encounter
--- NOTE | 2024-06-17 09:34 | ED_ITS ---
HPI - General Adult General Chief complaint: Skin/Abscess/Foreign Body Stated complaint: L sided facial swelling Time Seen by Provider: 06/17/24 08:52 History of Present Illness HPI narrative: 84-year-old male presents emergency department for right-sided facial swelling. Patient states he 1st noticed the swelling 2 days ago and the swelling has worsened through today. Patient 1st noticed the swelling behind the right ear. Patient is edentulous and denies any jaw pain. Patient does have a remote history of colon cancer. Related Data Home Medications ?Medication ?Instructions ?Recorded ?Confirmed ?Last Taken ?Type aspirin 81 mg tablet 81 mg PO DAILY 09/22/22 09/22/22 09/22/22 History atenolol 50 mg tablet 50 mg PO DAILY 09/22/22 09/22/22 09/22/22 History atorvastatin 80 mg tablet 80 mg HS 09/22/22 09/22/22 09/21/22 History cholecalciferol (vitamin D3) 125 125 mcg PO DAILY 09/22/22 09/22/22 09/22/22 History mcg (5,000 unit) tablet (Vitamin D3) chondroitin sulfate A sodium 400 1,200 mg PO DAILY 09/22/22 09/22/22 09/22/22 History mg capsule clopidogrel 75 mg tablet 75 mg DAILY 09/22/22 09/22/22 09/22/22 History glucosamine sulfate 750 mg tablet 1,500 mg PO DAILY 09/22/22 09/22/22 09/22/22 History isosorbide mononitrate 60 mg 60 mg PO DAILY 09/22/22 09/22/22 09/22/22 History tablet,extended release 24 hr lisinopril 10 mg tablet 10 mg PO DAILY 09/22/22 09/22/22 09/22/22 History multivitamin (Daily Multi-Vitamin 1 tablet PO DAILY 09/22/22 09/22/22 09/22/22 History tablet) omega 3-aqo-uix-fish oil 1,000 mg 1 cap PO DAILY 09/22/22 09/22/22 09/22/22 History (120 mg-180 mg) capsule (Fish Oil) prednisolone acetate 1 % eye 1 drp EACH EYE HS 09/22/22 09/22/22 09/22/22 History drops,suspension ranolazine 1,000 mg 1,000 mg PO QAM AND QPM 09/22/22 09/22/22 09/22/22 History tablet,extended release,12 hr Allergies Allergy/AdvReac Type Severity Reaction Status Date / Time No Known Allergies Allergy Unverified 06/17/24 09:02 Review of Systems 2 Review of Systems: All systems reviewed & are unremarkable except as noted in HPI and below [facility] Past Medical History Medical History CAD (coronary artery disease) Catheterization in 2017 revealed severe three-vessel coronary disease, patent SONG to the Left anterior descending, patent sequential radial artery graft to OM2 and OM3, occluded SVG to the ramus, occluded SVG to the RCA. The RCA had an 80% proximal and a long 70% mid stenosis with an occluded posterolateral and 80% ostial PDA branch which was small. The diagonal was also diseased. Due to the diffuse nature of his CAD and small vessels, medical therapy was continued. Compression fracture Hyperlipidemia Hypertension Obstructive sleep apnea Osteoarthritis Surgical History Surgical History H/O colectomy History of colon cancer 6 cm tumor. Hx of cholecystectomy S/P CABG x 5 CABG x5 in 2001 (SONG to the Left anterior descending, SVG to the ramus, SVG to the posterior descending, radial artery graft to the om 1 sequentially to OM2. Catheterization 2017 showed the vein grafts were occluded. Family History Family History Sibling Family history of chronic obstructive pulmonary disease Family history of diabetes mellitus in first degree relative Mother Family history of heart disease in male family member before age 55 Father Acute myocardial infarction Other Family history of gallbladder disease Social History Social History Social History: The patient lives home alone. He is . He has 2 children. He is retired. He was in the [employer] for several years and served in [employer] in the 1960s. 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 He is a lifelong nonsmoker. Code status full code Smoking status: Never smoker Alcohol intake: current Lack of Transportation: No Lack of Food: Never True Current Housing: I Have Housing Concerned About Future Housing: No Difficulty Paying Gas/Electric Bills: No Difficulty Paying for Meds: No Currently Unemployed: No Education: Don't Know Difficulty w/ Childcare or Family Care: No Spiritual care concerns: No Exam 2 Narrative: APPEARANCE: Well appearing, no pain, no distress, well-nourished. HEAD: Right-sided posterior auricular swelling in to right facial/parotid, tenderness to palpation EYES: PERRLA/EOMI, conjunctivae clear. NOSE: Normal no drainage EARS:TMS clear with good light reflex. THROAT: Pharynx clear, no exudate. NECK: Supple. No adenopathy, no masses. RESPIRATORY: Airway patent, respirations nonlabored. Clear to auscultation bilaterally, no rales, rhonchi, wheezing. CARDIOVASCULAR: Regular rate and rhythm without murmurs rubs or gallops. ABDOMINAL: Soft, nontender, nondistended, normal bowel sounds MUSCULOSKELETAL: Moves all extremities. Strength/ROM intact, No edema, No calf tenderness. NEURO: Alert. Cranial nerves II through XII intact. Good gait. Good coordination SKIN: Warm, dry. Normal Color Course Vital Signs Vital signs: Vital Signs Temperature 97.8 F 06/17/24 08:59 Pulse Rate 97 06/17/24 08:59 Respiratory Rate 18 06/17/24 08:59 Blood Pressure 133/72 06/17/24 08:59 Pulse Oximetry 99 06/17/24 08:59 Oxygen Delivery Room Air 06/17/24 08:59 Temperature 97.8 F 06/17/24 08:59 Pulse Rate 79 06/17/24 15:56 Respiratory Rate 16 06/17/24 15:56 Blood Pressure 139/71 06/17/24 15:56 Pulse Oximetry 98 06/17/24 15:56 Oxygen Delivery Room Air 06/17/24 08:59 Medical Decision Making [facility] Narrative Medical decision making narrative: 84-year-old male presents to the emergency department for evaluation for right- sided facial swelling. CT was concerning for parotitis. No ENT was on-call for [place] so I discussed the case with ENT on at [facility] and they recommended doing a aspiration culture and cytology. Done by Radiology but only 1 mL of fluid was obtained and this was only enough for a culture but not for a cytological analysis. Patient was started on cefepime in the emergency department and patient was discharged home with Augmentin. Patient was provided follow-up with ENT at [place] was also provided information for follow-up with our ENT. Patient was provided additional medication for pain control. All questions concerns were addressed patient was comfortable plan for discharge and close follow-up. Differential Diagnosis Differential Diagnosis: Cellulitis, parotitis, infectious parotitis Vital Signs Vital Signs: Vital Signs Temperature 97.8 F 06/17/24 08:59 Pulse Rate 97 06/17/24 08:59 Respiratory Rate 18 06/17/24 08:59 Blood Pressure 133/72 06/17/24 08:59 Pulse Oximetry 99 06/17/24 08:59 Oxygen Delivery Room Air 06/17/24 08:59 Temperature 97.8 F 06/17/24 08:59 Pulse Rate 79 06/17/24 15:56 Respiratory Rate 16 06/17/24 15:56 Blood Pressure 139/71 06/17/24 15:56 Pulse Oximetry 98 06/17/24 15:56 Oxygen Delivery Room Air 06/17/24 08:59 Lab Data Lab results reviewed: Yes I reviewed the patient's lab results. 06/17/24 09:52 06/17/24 09:52 Labs: Lab Results 06/17/24 Range/Units 09:52 WBC 7.8 (4.5-10.0) K/mm3 RBC 4.18 L (4.6-6.20) M/mm3 Hgb 13.3 L (14.0-18.0) g/dL Hct 39.4 L (42.0-52.0) % MCV 94.3 (80-100) fl MCH 31.8 (26-34) pg MCHC 33.8 (32-36) g/dl RDW 13.4 (11.5-14.5) % Plt Count 182 (150-375) k/mm3 MPV 10.7 H (7.4-10.4) fl Immature Gran % (Auto) 0.5 (0-0.5) % Neut % (Auto) 70.7 (45.5-73.1) % Lymph % (Auto) 15.0 L (18.3-44.2) % [place] % (Auto) 12.5 H (2.6-8.5) % Eos % (Auto) 0.9 (0-4.4) % Baso % (Auto) 0.4 (0.2-1.2) % Lymph # (Auto) 1.17 (0.9-3.2) K/mm3 [place] # (Auto) 1.0 H (0.1-0.6) K/mm3 Eos # (Auto) 0.1 (0-0.3) K/mm3 Baso # (Auto) 0.0 (0.0-0.1) K/mm3 Abs Immat Gran (auto) 0.04 H (0.00-0.031) K/mm3 Absolute Neuts (auto) 5.5 (1.3-6.7) K/mm3 Absolute Nucleated RBC 0.000 (0.0-0.012) K/mm3 Nucleated RBC % 0.0 (0.0-0.2) % Sodium 136 L (137-145) mmol/L Potassium 4.3 (3.4-5.0) mmol/L Chloride 107 (98-107) mmol/L Carbon Dioxide 17 L (22-30) mmol/L Anion Gap 12 (4-12) mmol/L BUN 22 H (9-20) mg/dL Creatinine 1.06 (0.7-1.3) mg/dL Estim Creat Clear Calc 67 ml/min Estimated GFR > 60 (59 - ) Glucose 115 H (65-110) mg/dL Calcium 8.7 (8.4-10.2) mg/dL Total Bilirubin 0.9 (0.2-1.3) mg/dL AST 34 (17-59) U/L ALT 23 (6-50) U/L Alkaline Phosphatase 60 (38-126) U/L Total Protein 7.0 (6.3-8.2) g/dL Albumin 3.9 (3.5-5.1) g/dL Imaging Data Radiologist's impression: Impressions Face CT 06/17/24 11:16 IMPRESSION: 1. Right otitis externa with additional stranding surrounding the right parotid gland which contains a 3.0 x 2.4 x 2.7 cm relatively low density mass which could represent neoplasm, suppurative lymph node/necrotic lymph node or less likely abscess. Correlate clinically and could consider ultrasound for further evaluation with either biopsy or aspiration as clinically indicated. Cyst Aspiration Ultrasound 06/17/24 15:31 IMPRESSION: 1. Successful Ultrasound-guided aspiration 1 mL of opaque rbjynhm-yrjuaa-stjuvpo fluid from a 3 cm likely complex cystic right parotid lesion. Discharge Plan Discharge Clinical Impression: Acute parotitis Patient Disposition: Home, Self-Care Condition: Stable Instructions: Antibiotic Form, Parotid Duct Obstruction (ED) Additional Instructions: Ibuprofen for pain control. Tramadol as needed for additional pain control. Antibiotic as directed until completed. Have close follow-up with ENT. [facility], [facility] [address] [facility], [address] [place] [address] [phone] ([id number]) Patient Language: Yakut Prescriptions: New amoxicillin-pot clavulanate 875-125 mg tablet 1 tablet PO Q12H 7 Days Qty: 14 0RF tramadol 50 mg tablet 50 mg PO BID PRN (Reason: pain) Qty: 14 0RF No Action multivitamin [Daily Multi-Vitamin] Tablet 1 tablet PO DAILY atorvastatin 80 mg tablet 80 mg HS clopidogrel 75 mg tablet 75 mg DAILY isosorbide mononitrate 60 mg tablet extended release 24 hr 60 mg PO DAILY prednisolone acetate 1 % drops,suspension 1 drp EACH EYE HS lisinopril 10 mg tablet 10 mg PO DAILY aspirin 81 mg Tablet 81 mg PO DAILY atenolol 50 mg tablet 50 mg PO DAILY omega 7-mnk-jcl-fish oil [Fish Oil] 1,000 mg (120 mg-180 mg) Capsule 1 cap PO DAILY chondroitin sulfate A sodium 400 mg Capsule 1,200 mg PO DAILY glucosamine sulfate 750 mg Tablet 1,500 mg PO DAILY Rx Instructions: administer with meals ranolazine 1,000 mg tablet extended release 12 hr 1,000 mg PO QAM AND QPM cholecalciferol (vitamin D3) [Vitamin D3] 125 mcg (5,000 unit) Tablet 125 mcg PO DAILY amoxicillin-pot clavulanate 875-125 mg tablet 1 tablet PO Q12H 7 Days Qty: 14 0RF Follow-up/Referrals: Ash Kaufman MD [Physician] - Garland,Kobe Oshea MD [Primary Care Provider] -
[2024-06-17 10:01] LABS: Basophils Percent Auto 0.4 % (0.2-1.2); Eosinophils Absolute Auto 0.1 K/mm3 (0-0.3); Eosinophils Percent Auto 0.9 % (0-4.4); Hematocrit 39.4 % (42.0-52.0); Hemoglobin 13.3 g/dL (14.0-18.0); Immature Granulocyte Absolute 0.04 K/mm3 (0.00-0.031); Immature Granulocyte Percent A 0.5 % (0-0.5); Lymphocytes Absolute Auto 1.17 K/mm3 (0.9-3.2); Mean Corpuscular HGB Conc 33.8 g/dl (32-36); Mean Corpuscular Hemoglobin 31.8 pg (26-34); Mean Corpuscular Volume 94.3 fl (80-100); Mean Platelet Volume 10.7 fl (7.4-10.4); Monocytes Percent Auto 12.5 % (2.6-8.5); Neutrophils Absolute Auto 5.5 K/mm3 (1.3-6.7); Neutrophils Percent Auto 70.7 % (45.5-73.1); Platelet Count Result 182 k/mm3 (150-375); Red Blood Count 4.18 M/mm3 (4.6-6.20); Red Cell Distribution Width 13.4 % (11.5-14.5); White Blood Count 7.8 K/mm3 (4.5-10.0)
[2024-06-17 10:11] LABS: Alanine Aminotransferase 23 U/L (6-50); Albumin Level 3.9 g/dL (3.5-5.1); Alkaline Phosphatase 60 U/L (38-126); Anion Gap 12 mmol/L (4-12); Aspartate Amino Transferase 34 U/L (17-59); Bilirubin,Total 0.9 mg/dL (0.2-1.3); Blood Urea Nitrogen 22 mg/dL (9-20); Calcium 8.7 mg/dL (8.4-10.2); Carbon Dioxide 17 mmol/L (22-30); Chloride 107 mmol/L (98-107); Estimated CRCL calculation 67 ml/min; Estimated Glomerular Filt Rate > 60; Glucose 115 mg/dL (65-110); Potassium 4.3 mmol/L (3.4-5.0); Sodium 136 mmol/L (137-145)
[2024-06-17 11:04] VITALS: BP 141/70; PULSE 87; RESP 18; O2SAT 98
[2024-06-17] MEDS: CEFEPIME 2 GM/NS 50 ML 2 GM/50 ML BAG IVPB (12:06)
[2024-06-17 12:08] VITALS: BP 139/61; PULSE 79; RESP 17; O2SAT 98
[2024-06-17] MEDS: traMADol HCL (*CRX) 50 MG TABLET PO (13:23)
[2024-06-17 14:03] VITALS: BP 146/70; PULSE 69; RESP 16; O2SAT 97
[2024-06-17 15:56] VITALS: BP 139/71; PULSE 79; RESP 16; O2SAT 98
== END 2024-06-17 15:55 | disposition home or self-care (01) ==
PROVIDERS: Emergency Provider Emergency Medicine; PCP Family Medicine
DX: K11.21 Acute sialoadenitis (principal); R22.0 Localized swelling, mass and lump, head; I25.10 Atherosclerotic heart disease of native coronary artery without angina pectoris; I10 Essential (primary) hypertension; E78.5 Hyperlipidemia, unspecified; M19.90 Unspecified osteoarthritis, unspecified site; G47.33 Obstructive sleep apnea (adult) (pediatric); Z95.1 Presence of aortocoronary bypass graft; Z85.038 Personal history of other malignant neoplasm of large intestine; Z90.49 Acquired absence of other specified parts of digestive tract; H60.91 Unspecified otitis externa, right ear
CPT/HCPCS: 10160; 36415; 70487; 76942; 80053; 85025; 87070; 87075; 87205; 88108; 88305; 96365; 99284; A9270; J0692; Q9967